=== PATIENT | female | born 1985 | race Caucasian/White ===

== ENCOUNTER 2018-02-02 01:39 | Emergency (ER) | payer SELFPAY ==
[2018-02-02] MEDS ORDERED: LIDOCAINE 1% W/EPI 1:100,000 MDV 50 ML VIAL ONE (01:48)
[2018-02-02] MEDS ORDERED: TETANUS & DIPHTHERIA TOX,ADULT 0.5 ML VIAL ONE (01:54)
[2018-02-02] MEDS ORDERED: IBUPROFEN 400 MG TAB ONE (02:08)
[2018-02-02] MEDS ORDERED: IBUPROFEN 200 MG TAB PO ONE (02:08)
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
[2018-02-02 04:01] VITALS: BP 118/78; TEMP 98.7; O2SAT 99
== END 2018-02-02 03:54 | disposition home or self-care (01) ==
LOC: ER 01:39
PROC: 0JQG0ZZ Repair Right Lower Arm Subcutaneous Tissue and Fascia, Open Approach (ICD-10-PCS; principal; 2018-02-02)
DX: S51.811A Laceration without foreign body of right forearm, initial encounter (principal); X99.1XXA Assault by knife, initial encounter; Y93.89 Activity, other specified; Y92.89 Other specified places as the place of occurrence of the external cause; Z91.048 Other nonmedicinal substance allergy status; Z23 Encounter for immunization; I10 Essential (primary) hypertension; F17.210 Nicotine dependence, cigarettes, uncomplicated
CPT/HCPCS: 90714; 99284

== ENCOUNTER 2020-03-06 21:35 | Emergency (ER) | payer SELFPAY ==
--- OUTSIDE RECORDS SUMMARY | 2020-03-06 21:37 | XMS REPORT | Continuity of Care Document ---
:1985 Author Organization [facility] t Address [address] [place] [address] Care Team Providers Name Role Phone Unavailable Unavailable Unavailable Payers Payer Name Policy Type Policy Number Effective Date Expiration Date S ource Problems This patient has no known problems. Allergies, Adverse Reactions, Alerts Allergy Allergy Status Severity Reaction(s) Onset Inactive Treating Comm ents Source Name Type Date Date Clinician No Known DA Active [facility] Allerg 05-04 Clear s 00:00: Adams [address] [place] [address] Medications This patient has no known medications. Procedures This patient has no known procedures. Results Test Description Test Time Test Comments Results Result [facility] e Comments - DUP VEIN UNI/LTD 2019-05-04 Name: 20:08:00 IGLESIA HUGO [facility] [place] : 1985 Age/S: 33 / F [address] [place] [address] Unit #: [id number] Loc: [place] [address] Phys: Donato Dyer DO Acct: [id number] Dis Date: Status: REG ER PHONE #: [phone] Exam Date: 05/04/20192005 FAX #: [phone] Reason: Left calf pain swelling eval for DVT EXAMS: CPT CODE: [id number] DUP VEIN UNI/LTD 01694 Clinical Indication: Left calf pain swelling eval for DVT; Comparison: None TECHNIQUE: Sonographic evaluation of the left lower extremity veins was performed using high resolution B-mode imaging, along with pulse and color Doppler imaging. FINDINGS: Left lower extremity: The common femoral vein, femoral vein, popliteal vein and visualized posterior tibial/calf veins are patent. The saphenofemoral junction is unremarkable. REFERENCE: Deep veins include: common femoral vein, superficial femoral vein (also can be referred to as "femoral vein"), popliteal vein, posterior tibial vein Superficial veins include: greater and lesser saphenous veins IMPRESSION: No sonographic evidence for DVT in the left lower extremity veins. SL: LANVU-H at 2007 Reported and signed by: Alex Henderson M.D. CC: Donato Dyer DO Technologist: Love Lynne RDMS(AB)(OB) Trnscb Date/Time: 05/04/2019 (2007) DeepikaLNV Orig Print D/T: S: 05/04/2019 (2010) Probe: PAGE 1 Signed Report - XR ANKLE 3 + V 2019-05-04 FAX: Y LT 19:28:00 Donato Dyer DO [phone] [place]: St: PRE Name: IGLESIA HUGO [facility] : 1985 Age/S: 33/F [address] [place] [address] Unit #: [id number] Loc: [place] [address] Phys: Donato Dyer DO Acct: [id number] Dis Date: Status: PRE ER PHONE #: [phone] Exam Date: 05/04/20191915 FAX #: [phone] Reason: left ankle pain EXAMS: CPT CODE: [id number] XR ANKLE 3 + [place] [id number] Clinical Indication: left ankle pain; Comparison: None FINDINGS: The 3 views of the left ankle show normal alignment without fractures or dislocations. The tibiotalar joint and talar dome are unremarkable. The subtalar joint is unremarkable. There is no ankle joint effusion. The ankle mortise is normal. The distal tibia-fibular alignment is unremarkable. There is no radiopaque foreign bodies. No soft tissue swelling is seen. If there is further concern, recommend follow-up radiographs or MRI for complete assessment. IMPRESSION: No fracture or dislocation of the left ankle. SL: LANVU-H at 1928 Reported and signed by: Alex Hendersno M.D. CC: Donato Dyer DO Technologist: RT Sumaya(Taran)Taran Trnscrd Date/Time/By: 05/04/2019 (1927) : By: DeepikaLNV Orig Print D/T: S: 05/04/2019 (1930) PAGE 1 Signed Report
--- NOTE | 2020-03-06 22:30 | EDPHYS ---
Physician Documentation [facility] Name: Kary Morales Age: 34 yrs Sex: Female : 1985 Arrival Date: 03/06/2020 Time: 21:36 Bed 18 Private MD: ED Physician Gege Jasso HPI: 03/06 22:25 This 34 yrs old Female presents to ER via Ambulatory with complaints of cp Spider Bite. 22:25 The patient or guardian complains of pain, that is acute, swelling, tenderness. The cp complaints affect the right elbow. Context: possible spider bite. 22:25 Onset: The symptoms/episode began/occurred yesterday. Treatment prior to arrival cp includes: no previous treatment. Associated signs and symptoms: Pertinent positives: erythema, swelling, warmth, Pertinent negatives: decreased range of motion, fever, injury. 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 - Social history:: Smoking status: Patient reports the use of cigarette tobacco products, smokes one-half pack cigarettes per day. ROS: 22:26 Constitutional: Negative for body aches, chills, fever. cp 22:26 MS/extremity: Negative for injury or acute deformity, decreased range of motion. 22:26 Skin: Positive for cellulitis, pustules, of the right elbow. 22:26 All other systems are negative. Exam: 22:27 Head/Face: Normocephalic, atraumatic. cp 22:27 Constitutional: The patient appears in no acute distress, alert, awake, non-toxic, well developed, well nourished. 22:27 Cardiovascular: Rate: normal. 22:27 Respiratory: the patient does not display signs of respiratory distress, Respirations: normal, labored breathing, is not present. 22:27 Skin: cellulitis, that is moderate, well demarcated, on the right elbow, noted pustule and mild induration. Vital Signs: 21:51 BP 134 / 85; Pulse 85; Resp 18 S; Temp 97(TE); Pulse Ox 100% on R/A; Weight 56.7 kg ca1 (R); Height 5 ft. 2 in. (157.48 cm) (R); 21:51 Body Mass Index 22.86 (56.70 kg, 157.48 cm) ca1 MDM: 22:11 Patient medically screened. cp 22:25 Differential diagnosis: abscess, cellulitis, septic joint. cp 22:28 Data reviewed: vital signs, nurses notes, and as a result, I will discharge patient. cp 22:29 Counseling: I had a detailed discussion with the patient and/or guardian regarding: the cp historical points, exam findings, and any diagnostic results supporting the discharge/admit diagnosis, to return to the emergency department if symptoms worsen or persist or if there are any questions or concerns that arise at home. 03/06 22:24 Order name: [facility]. Order: outline area of redness right elbow; Complete Time: 22:44 cp Administered Medications: 22:43 Drug: Doxycycline 100 mg Route: PO; jd3 22:52 Follow up: Response: No adverse reaction jd3 22:43 Drug: Bactrim (160 mg-800 mg (DS) 1 tablet Route: PO; jd3 22:53 Follow up: Response: No adverse reaction j Disposition: 22:55 Chart complete. 03/07 02:27 Co-signature as Attending Physician, Gege Jasso MD. ma2 Disposition: 03/06/20 22:29 Discharged to Home. Impression: Cellulitis of right upper limb - elbow. - Condition is Stable. - Discharge Instructions: Cellulitis, Adult. - Prescriptions for Doxycycline Hyclate 100 mg Oral Tablet - take 1 tablet by ORAL route every 12 hours; 20 tablet. Bactrim DS 800- 160 mg Oral Tablet - take 1 tablet by ORAL route every 12 hours for 10 days; 20 tablet. - Medication Reconciliation Form, Thank You Letter, Antibiotic Education, Prescription Opioid Use, Work release form form. - Follow up: Private Physician; When: 1 - 2 days; Reason: Worsening of condition. - Problem is new. - Symptoms have improved. Signatures: Junior Hu PA PA cp Davies, Jonathon, RN RN jd3 Alzahri, Mohammad, MD MD ma2 Brandi Webb RN RN ca1 Corrections: (The following items were deleted from the chart) 03/06 22:53 22:29 03/06/2020 22:29 Discharged to Home. Impression: Cellulitis of right upper limb - jd3 elbow. Condition is Stable. Forms are Medication Reconciliation Form, Thank You Letter, Antibiotic Education, Prescription Opioid Use. Follow up: Private Physician; When: 1 - 2 days; Reason: Worsening of condition. Problem is new. Symptoms have improved. cp
--- NOTE | 2020-03-06 22:30 | ER ---
Nurse's Notes [facility] Name: Kary Morales Age: 34 yrs Sex: Female : 1985 Arrival Date: 03/06/2020 Time: 21:36 Bed 18 Private MD: Diagnosis: Cellulitis of right upper limb-elbow Presentation: 03/06 21:51 Chief complaint: Patient states: Abscess on R elbow started yesterday. Coronavirus ca1 screen: Proceed with normal triage. Patient denies a cough. Patient denies shortness of breath or difficulty breathing. Patient denies measured and/or subjective temperature greater than 100.4F prior to today's visit. Patient denies travel on a cruise ship or to a country the [facility] currently lists as an affected area. Patient denies contact with known and/or suspected case of COVID-19. Ebola Screen: Patient negative for fever greater than or equal to 101.5 degrees Fahrenheit, and additional compatible Ebola Virus Disease symptoms Patient denies exposure to infectious person. Patient denies travel to an Ebola-affected area in the 21 days before illness onset. No symptoms or risks identified at this time. Initial Sepsis Screen: Does the patient meet any 2 criteria? No. Patient's initial sepsis screen is negative. Does the patient have a suspected source of infection? No. Patient's initial sepsis screen is negative. Risk Assessment: Do you want to hurt yourself or someone else? Patient reports no desire to harm self or others. Onset of symptoms was March 06, 2020. 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 - Social history:: Smoking status: Patient reports the use of cigarette tobacco products, smokes one-half pack cigarettes per day. Screenin:52 Abuse screen: Denies threats or abuse. Nutritional screening: No deficits noted. jd3 Tuberculosis screening: No symptoms or risk factors identified. Fall Risk Ambulatory Aid- None/Bed Rest/Nurse Assist (0 pts). Gait- Normal/Bed Rest/Wheelchair (0 pts) Mental Status- Oriented to own ability (0 pts). Total Capps Fall Scale indicates No Risk (0-24 pts). Assessment: 22:40 General: Appears in no apparent distress. uncomfortable, Behavior is calm, cooperative, jd3 appropriate for age. Pain: Complains of pain in right elbow Quality of pain is described as aching. Neuro: Level of Consciousness is awake, alert, obeys commands, Oriented to person, place, time, situation. Cardiovascular: Denies chest pain, Capillary refill < 3 seconds Patient's skin is warm and dry. Respiratory: Airway is patent Respiratory effort is even, unlabored, Respiratory pattern is regular, symmetrical, Denies cough, shortness of breath. GI: No signs and/or symptoms were reported involving the gastrointestinal system. : No signs and/or symptoms were reported regarding the genitourinary system. EENT: No signs and/or symptoms were reported regarding the EENT system. Derm: Skin is intact, Skin is dry, Skin is normal, Skin temperature is warm. Musculoskeletal: Circulation, motion, and sensation intact. Range of motion: intact in all extremities. Injury Description: Bite sustained to right elbow caused by an unknown animal, is from insect redness noted to left elbow with a white head in the middle. area of redness marked with skin marker. 22:51 Reassessment: Patient appears in no apparent distress at this time. Patient and/or jd3 family updated on plan of care and expected duration. Pain level reassessed. Patient is alert, oriented x 3, equal unlabored respirations, skin warm/dry/pink. Vital Signs: 21:51 BP 134 / 85; Pulse 85; Resp 18 S; Temp 97(TE); Pulse Ox 100% on R/A; Weight 56.7 kg ca1 (R); Height 5 ft. 2 in. (157.48 cm) (R); 21:51 Body Mass Index 22.86 (56.70 kg, 157.48 cm) ca1 ED Course: 21:36 Patient arrived in ED. ds1 21:52 Triage completed. ca1 21:54 Arm band placed on right wrist. ca1 22:06 Junior Hu PA is PHCP. cp 22:06 Gege Jasso MD is Attending Physician. cp 22:37 Solis Chairez, RN is Primary Nurse. jd3 22:51 No provider procedures requiring assistance completed. Patient did not have IV access jd3 during this emergency room visit. 22:52 Patient has correct armband on for positive identification. Bed in low position. Call jd3 light in reach. Side rails up X 1. Adult w/ patient. Administered Medications: 22:43 Drug: Doxycycline 100 mg Route: PO; jd3 22:52 Follow up: Response: No adverse reaction jd3 22:43 Drug: Bactrim (160 mg-800 mg (DS) 1 tablet Route: PO; jd3 22:53 Follow up: Response: No adverse reaction jd3 Outcome: 22:29 Discharge ordered by MD. cp 22:52 Discharged to home ambulatory, with family. jd3 22:52 Condition: stable 22:52 Discharge instructions given to patient, family, Instructed on discharge instructions, follow up and referral plans. medication usage, Demonstrated understanding of instructions, follow-up care, medications, Prescriptions given X 2. 22:53 Patient left the ED. jd3 Signatures: Trang Harman ds1 Junior Hu PA PA cp Solis Chairez, RN RN jd3 Brandi Webb RN RN ca1
[2020-03-06] MEDS ORDERED: SMZ./TMP. 800/160 MG TABLET ONE (22:48)
[2020-03-06] MEDS ORDERED: DOXYCYCLINE 100 MG CAP PO ONE (22:48)
[2020-03-06 23:15] VITALS: BP 134/85; TEMP 97; O2SAT 100
== END 2020-03-06 22:53 | disposition home or self-care (01) ==
LOC: ER 21:35
DX: L03.113 Cellulitis of right upper limb (principal); W57.XXXA Bitten or stung by nonvenomous insect and other nonvenomous arthropods, initial encounter; Y93.9 Activity, unspecified; Y92.9 Unspecified place or not applicable; I10 Essential (primary) hypertension; F17.210 Nicotine dependence, cigarettes, uncomplicated; Z88.5 Allergy status to narcotic agent; Z88.8 Allergy status to other drugs, medicaments and biological substances; Z91.048 Other nonmedicinal substance allergy status
CPT/HCPCS: 99283

== ENCOUNTER 2020-06-08 00:37 | Emergency (ER) | payer SELFPAY ==
--- OUTSIDE RECORDS SUMMARY | 2020-06-08 00:39 | XMS REPORT | Continuity of Care Document ---
:1985 Author Organization [facility] t Address [address] [place] [address] Care Team Providers Name Role Phone Unavailable Unavailable Unavailable Payers Payer Name Policy Type Policy Number Effective Date Expiration Date S ource Problems This patient has no known problems. Allergies, Adverse Reactions, Alerts Allergy Allergy Status Severity Reaction(s) Onset Inactive Treating Comm ents Source Name Type Date Date Clinician No Known DA Active U [facility] Allerg 05-04 [place] s 00:00: Adams 00 [facility] Medications This patient has no known medications. Procedures This patient has no known procedures. Results Test Description Test Time Test Comments Results Result [facility] Comments - DUP VEIN UNI/LTD 2019-05-04 Name: 20:08:00 IGLESIA HUGO [facility] : 1985 Age/S: 33 / F [address] [place] [address] Unit #: [id number] Loc: [place] [address] Phys: Donato Dyer DO Acct: [id number] Dis Date: Status: REG ER PHONE #: [phone] Exam Date: 05/04/20192005 FAX #: [phone] Reason: Left calf pain swelling eval for DVT EXAMS: CPT CODE: [id number] DUP VEIN UNI/LTD 16726 Clinical Indication: Left calf pain swelling eval [...] FAX: Y LT 19:28:00 Donato Dyer DO [phone] [place]: St: PRE Name: IGLESIA HUGO [facility] : 1985 Age/S: 33/F [address] [place] [address] Unit #: [id number] Loc: [place] [address] Phys: Donato Dyer DO Acct: [id number] Dis Date: Status: PRE ER PHONE #: [phone] Exam Date: 05/04/20191915 FAX #: [phone] Reason: left ankle pain EXAMS: CPT CODE: [id number] XR ANKLE 3 + [place] [address] Clinical Indication: left ankle pain; Comparison: None [...] or dislocation of the left ankle. SL: HEATHERU-H at 1928 Reported and signed by: Alex Henderson M.D. CC: Donato Dyer DO Technologist: RT Sumaya(R)R Trnscrd Date/Time/By: 05/04/2019 (1927) : By: DeepikaLNV Orig Print D/T: S: 05/04/2019 (1930) PAGE 1 Signed Report
--- NOTE | 2020-06-08 01:05 | EDPHYS ---
Physician Documentation [facility] Name: Kary Morales Age: 34 yrs Sex: Female : 1985 Arrival Date: 06/08/2020 Time: 00:40 Bed 8 Private MD: ED Physician Ian Mccray HPI: 06/08 01:01 This 34 yrs old Female presents to ER via Ambulatory with complaints of Back jr8 Pain. 01:01 The patient presents with pain that is acute. The symptoms are located in the low back. jr8 Onset: The symptoms/episode began/occurred acutely, today. The pain does not radiate. Associated signs and symptoms: The patient has no apparent associated signs or symptoms. Modifying factors: The patient symptoms are alleviated by nothing, the patient symptoms are aggravated by any movement. Severity of symptoms: At their worst the symptoms were moderate, in the emergency department the symptoms are unchanged. The patient has not experienced similar symptoms in the past. The patient has not recently seen a physician. Patient was on swing which broke causing her to fall on right buttock. Pain to low back since incident. Denies numbness, tingling, bowel or bladder dysfunction . 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 - Social history:: Smoking status: Patient reports the use of cigarette tobacco products, smokes one-half pack cigarettes per day, Patient uses alcohol, occasionally. Patient/guardian denies using street drugs. ROS: 01:01 Eyes: Negative for injury, pain, redness, and discharge, ENT: Negative for injury, jr8 pain, and discharge, Neck: Negative for injury, pain, and swelling, Cardiovascular: Negative for chest pain, palpitations, and edema, Respiratory: Negative for shortness of breath, cough, wheezing, and pleuritic chest pain, Abdomen/GI: Negative for abdominal pain, nausea, vomiting, diarrhea, and constipation, MS/Extremity: Negative for injury and deformity, Skin: Negative for injury, rash, and discoloration, Neuro: Negative for headache, weakness, numbness, tingling, and seizure. 01:01 Back: Positive for pain at rest, pain with movement, Negative for radiated pain. Exam: 01:01 Head/Face: Normocephalic, atraumatic. Neck: Trachea midline, no thyromegaly or masses jr8 palpated, and no cervical lymphadenopathy. Supple, full range of motion without nuchal rigidity, or vertebral point tenderness. No Meningismus. Chest/axilla: Normal chest wall appearance and motion. Nontender with no deformity. No lesions are appreciated. Cardiovascular: Regular rate and rhythm with a normal S1 and S2. No gallops, murmurs, or rubs. Normal PMI, no JVD. No pulse deficits. Respiratory: Lungs have equal breath sounds bilaterally, clear to auscultation and percussion. No rales, rhonchi or wheezes noted. No increased work of breathing, no retractions or nasal flaring. Abdomen/GI: Soft, non-tender, with normal bowel sounds. No distension or tympany. No guarding or rebound. No evidence of tenderness throughout. Skin: Warm, dry with normal turgor. Normal color with no rashes, no lesions, and no evidence of cellulitis. MS/ Extremity: Pulses equal, no cyanosis. Neurovascular intact. Full, normal range of motion. Neuro: Awake and alert, GCS 15, oriented to person, place, time, and situation. Cranial nerves II-XII grossly intact. Motor strength 5/5 in all extremities. Sensory grossly intact. Cerebellar exam normal. Normal gait. 01:01 Back: pain, that is moderate, of the lumbar area and right low back, ROM is painful, with flexion, normal spinal alignment noted, CVA tenderness, is absent. Vital Signs: 00:54 BP 117 / 76; Pulse 87; Resp 16 S; Temp 98.2(O); Pulse Ox 99% on R/A; Weight 56.7 kg bb (R); Height 5 ft. 2 in. (157.48 cm) (R); Pain 9/10; 00:54 Body Mass Index 22.86 (56.70 kg, 157.48 cm) bb MDM: 00:57 Patient medically screened. jr8 01:01 Data reviewed: vital signs, nurses notes, radiologic studies, CT scan. Data jr8 interpreted: Pulse oximetry: on room air is 99 %. Interpretation: normal. Counseling: I had a detailed discussion with the patient and/or guardian regarding: the historical points, exam findings, and any diagnostic results supporting the discharge/admit diagnosis, radiology results, the need for outpatient follow up, a family practitioner, to return to the emergency department if symptoms worsen or persist or if there are any questions or concerns that arise at home. 06/08 01:01 Order name: CT Lumbar Spine Wo Con jr8 Administered Medications: 01:08 Drug: [place] 10 mg-325 mg 1 tabs Route: PO; mg2 01:08 Drug: TORadol 30 mg Route: IM; Site: right gluteus; mg2 Disposition: 02:48 Co-signature as Attending Physician, Ian Mccray MD. mena Disposition: 06/08/20 01:05 Discharged to Home. Impression: Low back pain. - Condition is Stable. - Discharge Instructions: Back Pain, Adult, Musculoskeletal Pain, Heat Therapy. - Prescriptions for Ibuprofen 800 mg Oral Tablet - take 1 tablet by ORAL route every 12 hours As needed take with food; 20 tablet. Robaxin 500 mg Oral Tablet - take 2 tablet by ORAL route every 6 hours As needed; 40 tablet. Medrol (Monster) 4 mg Oral Tablets, Dose Pack - take 1 tablet by ORAL route as directed - follow package instructions; 1 packet. - Medication Reconciliation Form, Thank You Letter, Antibiotic Education, Prescription Opioid Use, Work release form form. - Follow up: Private Physician; When: 2 - 3 days; Reason: Recheck today's complaints, Continuance of care, Re-evaluation by your physician. - Problem is new. - Symptoms have improved. Signatures: Dispatcher [employer] Angelito Godfrey RN RN sg Lam, Pin, MD MD pkl Ángela Umanzor RN RN Armando Edgar PA PA jr8 Yovani Reyes RN RN mg2 Corrections: (The following items were deleted from the chart) 02:27 01:05 06/08/2020 01:05 Discharged to Home. Impression: Low back pain. Condition is sg Stable. Forms are Medication Reconciliation Form, Thank You Letter, Antibiotic Education, Prescription Opioid Use. Follow up: Private Physician; When: 2 - 3 days; Reason: Recheck today's complaints, Continuance of care, Re-evaluation by your physician. Problem is new. Symptoms have improved. jr8
--- NOTE | 2020-06-08 01:05 | ER ---
Nurse's Notes [facility] Name: Kary Morales Age: 34 yrs Sex: Female : 1985 Arrival Date: 06/08/2020 Time: 00:40 Bed 8 Private MD: Diagnosis: Low back pain Presentation: 06/08 00:54 Chief complaint: Patient states: she was swinging on a swing at the park this morning bb approx 2014 and fell through it injuring her lower back and tailbone. Coronavirus screen: At this time, the client does not indicate any symptoms associated with coronavirus-19. Ebola Screen: No symptoms or risks identified at this time. Initial Sepsis Screen: Does the patient meet any 2 criteria? No. Patient's initial sepsis screen is negative. Does the patient have a suspected source of infection? No. Patient's initial sepsis screen is negative. Risk Assessment: Do you want to hurt yourself or someone else? Patient reports no desire to harm self or others. Onset of symptoms was June 07, 2020. 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 - Social history:: Smoking status: Patient reports the use of cigarette tobacco products, smokes one-half pack cigarettes per day, Patient uses alcohol, occasionally. Patient/guardian denies using street drugs. Screenin:57 Abuse screen: Denies threats or abuse. Denies injuries from another. Nutritional mg2 screening: No deficits noted. Tuberculosis screening: No symptoms or risk factors identified. Fall Risk Fall in past 12 months (25 points). Assessment: 00:57 General: Appears in no apparent distress. uncomfortable, Behavior is calm, cooperative. bb Pain: Complains of pain in back Pain currently is 9 out of 10 on a pain scale. Neuro: Level of Consciousness is awake, alert, obeys commands, Oriented to person, place, time, situation. Cardiovascular: No deficits noted. Respiratory: Respiratory effort is even, unlabored, Respiratory pattern is regular. Derm: Skin is pink, warm \T\ dry. Musculoskeletal: Circulation, motion, and sensation intact. Reports pain in back. 00:57 General: Appears in no apparent distress. comfortable, Behavior is calm, cooperative. mg2 Pain: Complains of pain in back. Neuro: Level of Consciousness is awake, alert, obeys commands, Oriented to person, place, time, situation. Cardiovascular: Capillary refill < 3 seconds Patient's skin is warm and dry. Respiratory: Airway is patent Respiratory effort is even, unlabored, Respiratory pattern is regular, symmetrical. GI: No signs and/or symptoms were reported involving the gastrointestinal system. EENT: No deficits noted. Derm: Skin is intact, is healthy with good turgor, Skin is pink, warm \T\ dry. normal. Musculoskeletal: Reports pain in back. Vital Signs: 00:54 BP 117 / 76; Pulse 87; Resp 16 S; Temp 98.2(O); Pulse Ox 99% on R/A; Weight 56.7 kg bb (R); Height 5 ft. 2 in. (157.48 cm) (R); Pain 9/10; 00:54 Body Mass Index 22.86 (56.70 kg, 157.48 cm) bb ED Course: 00:40 Patient arrived in ED. bp1 00:56 Triage completed. bb 00:56 Arm band placed on Patient placed in an exam room, on a stretcher, on pulse oximetry. bb 00:57 Armando Siegel PA is PHCP. jr8 00:57 Ian Mccray MD is Attending Physician. jr8 00:57 Patient has correct armband on for positive identification. Bed in low position. Call bb light in reach. Side rails up X 1. Pulse ox on. NIBP on. Warm blanket given. 00:58 No provider procedures requiring assistance completed. mg2 01:27 Patient moved back from CT. awaiting CT report prior to DC to home per ERP order. sg 01:44 Yovani Reyes, RENATO is Primary Nurse. mg2 01:45 Patient did not have IV access during this emergency room visit. mg2 08:32 CT Lumbar Spine Wo Con In Process Unspecified. EDMS Administered Medications: 01:08 Drug: [place] 10 mg-325 mg 1 tabs Route: PO; mg2 01:08 Drug: TORadol 30 mg Route: IM; Site: right gluteus; mg2 Outcome: 01:05 Discharge ordered by MD. chen 02:25 Discharged to home via wheelchair, with family. sg 02:25 Condition: good 02:25 Discharge instructions given to patient, Instructed on discharge instructions, follow up and referral plans. no drinking with medication, no driving heavy equipment, medication usage, safety practices, Demonstrated understanding of instructions, follow-up care, medications, Prescriptions given X 3. 02:27 Patient left the ED. sg Signatures: Dispatcher [employer] EDMS Angelito Kirkland RN RN sg Ballard, Brenda RN RN Armando Edgar PA PA jr8 [place], Michele, RN RN mg2 Marlee Jacob bp1
[2020-06-08] MEDS ORDERED: KETOROLAC 30 MG/ML INJ ONE (01:15)
[2020-06-08] MEDS ORDERED: HYDROCODONE/APAP 10/325 TAB ONE (01:16)
[2020-06-08 08:18] VITALS: BP 117/76; TEMP 98.2; O2SAT 99
--- NOTE | 2020-06-08 11:59 | RAD REPORT ---
EXAM DESCRIPTION: CTSpine Lumbar Wo Con06/08/2020 6:58 am CLINICAL HISTORY: 34-year-old female who was on a swing and fell through it injuring her lower back and tailbone. TECHNIQUE: Multiple high-resolution thin axial CT images were performed through the lumbar spine fol lowed by sagittal and coronal reconstructed images. The CT study is performed according to ALARA (as low as reasonably achievable) or ALARA/IMAGE GENTLY, with automatic adjustment of mA and/or kV accord ing to patient size. Performed on: 06/08/2020 at 1: 20 AM COMPARISON: No prior studies were available for comparison. FINDINGS: There is very mild loss of height of the L1 vertebral body likely due to a mild chronic alejandro perior endplate compression fracture. There is no evidence of buckling of the anterior or posterior c ortex of L1. The remainder of the lumbar vertebrae are normal in height and alignment. There are very small Schmorl's nodes present along the endplates of L1-L3. The disc spaces are well preserved in he ight. Bone mineralization is normal. There is normal alignment of the facet joints on the parasagittal images. There are no significant de generative changes of the facet joints. There is no evidence of acute fracture or subluxation. There is no significant canal stenosis. Th ere is no significant neural foraminal stenosis. The paravertebral and paraspinal soft tissues ar e unremarkable. IMPRESSION: 1. No evidence of acute osseous injury involving the lumbar spine or visualized sacrum a nd coccyx. 2. Suspect mild chronic superior endplate compression fracture of L1. 3. Mild degenerative changes of the lumbar spine as described above. Electronically signed by: Latasha Ruggiero DO 06/08/2020 2:04 AM CDT Due to temporary technical issues with the PACS/Fluency reporting system, reports are being signed by the in house radiologist without review as a courtesy to ensure prompt reporting. The interpreting r adiologist is fully responsible for the content of the report.
== END 2020-06-08 02:27 | disposition home or self-care (01) ==
LOC: ER 00:37
DX: M54.5 Low back pain (principal); I10 Essential (primary) hypertension; F17.210 Nicotine dependence, cigarettes, uncomplicated; Z88.5 Allergy status to narcotic agent; Z88.8 Allergy status to other drugs, medicaments and biological substances; Z91.048 Other nonmedicinal substance allergy status
CPT/HCPCS: 72131; 96372; 99284

== ENCOUNTER 2020-11-02 18:32 | Emergency (ER) | payer SELFPAY ==
--- OUTSIDE RECORDS SUMMARY | 2020-11-02 18:34 | XMS REPORT | Continuity of Care Document ---
:1985 Author Organization [facility] t Address [address] [place] [address] Care Team Providers Name Role Phone Unavailable Unavailable Unavailable Payers Payer Name Policy Type Policy Number Effective Date Expiration Date S ource Problems This patient has no known problems. Allergies, Adverse Reactions, Alerts Allergy Allergy Status Severity Reaction(s) Onset Inactive Treating Comm ents Source Name Type Date Date Clinician No Known DA Active U [facility] Allergie 05-04 [place] s 00:00: Adams [address] [place] [address] Medications This patient has no known medications. Procedures This patient has no known procedures. Results Test Description Test Time Test Comments Results Result [facility] Comments - DUP VEIN UNI/LTD 2019-05-04 Name: 20:08:00 [facility]GLESIA HUGO [facility] [place] : 1985 Age/S: 33 / F [address] [place] [address] Unit #: [id number] Loc: [place] [address] Phys: Donato Dyer DO Acct: [id number] Dis Date: Status: REG ER PHONE #: [phone] Exam Date: 05/04/20192005 FAX #: [phone] Reason: Left calf pain swelling eval for DVT EXAMS: CPT CODE: [id number] DUP VEIN UNI/LTD 18342 Clinical Indication: Left calf pain swelling eval [...] FAX: Y LT 19:28:00 Donato Dyer DO [phone] [place]: St: PRE Name: IGLESIA HUGO [facility] : 1985 Age/S: 33/F [address] [place] [address] Unit #: [id number] Loc: [place] [address] Phys: Donato Dyer DO Acct: [id number] Dis Date: Status: PRE ER PHONE #: [phone] Exam Date: 05/04/20191915 FAX #: [phone] Reason: left ankle pain EXAMS: CPT CODE: [id number] XR ANKLE 3 + [place] [address]053 Clinical Indication: left ankle pain; Comparison: None [...] Sumaya(Taran)Taran Trnscrd Date/Time/By: 05/04/2019 (1927) : By: [email or web address] Orig Print D/T: S: 05/04/2019 (1930) PAGE 1 Signed Report
[2020-11-02] MEDS ORDERED: KETOROLAC 30 MG/ML INJ ONE (22:33)
[2020-11-02] MEDS ORDERED: CYCLOBENZAPRINE 10 MG TAB ONE (22:33)
[2020-11-02 22:51] LABS: Urine Blood NEGATIVE (NEG); Urine Glucose NEGATIVE (NEG); Urine Protein NEGATIVE (NEG); Urine Specific Gravity 1.025 (1.005-1.030); Urine pH 5.5 (5.0-7.0)
--- NOTE | 2020-11-02 23:55 | ER ---
Nurse's Notes [facility] Name: Kary Morales Age: 34 yrs Sex: Female : 1985 Arrival Date: 11/02/2020 Time: 18:33 Bed 4 Private MD: Diagnosis: Strain of muscle, fascia and tendon at neck level Presentation: 11/02 18:48 Chief complaint: Patient states: Neck, shoulder, both arms pain since overusing them at ll1 work 10 days ago. 2 periods month. Dark urine for a couple days. Coronavirus screen: Client denies travel out of the [place] in the last 14 days. At this time, the client does not indicate any symptoms associated with coronavirus-19. Ebola Screen: Patient denies travel to an Ebola-affected area in the 21 days before illness onset. Initial Sepsis Screen: Does the patient meet any 2 criteria? No. Patient's initial sepsis screen is negative. Does the patient have a suspected source of infection? No. Patient's initial sepsis screen is negative. Risk Assessment: Do you want to hurt yourself or someone else? Patient reports no desire to harm self or others. Onset of symptoms was October 23, 2020. 18:48 Method Of Arrival: Ambulatory ll1 18:48 Acuity: ALMA DELIA 3 ll1 Historical: - Allergies: 18:50 Dilaudid; ll1 18:50 Demerol; ll1 18:50 Tape; ll1 18:50 Morphine; ll1 - PMHx: 18:50 Hypertension; Seizures; ll1 - PSHx: 18:50 Tubal ligation; right leg surg; ll1 - Immunization history:: Flu vaccine is not up to date. - Social history:: Smoking status: Patient reports the use of cigarette tobacco products, smokes one-half pack cigarettes per day. Screenin:45 Abuse screen: Denies threats or abuse. Nutritional screening: No deficits noted. em Tuberculosis screening: No symptoms or risk factors identified. Fall Risk None identified. Assessment: 21:45 General: Appears in no apparent distress. uncomfortable, Behavior is calm, cooperative, em appropriate for age, Denies fever. Pain: Complains of pain in neck and right arm Pain currently is 10 out of 10 on a pain scale. Neuro: Level of Consciousness is awake, alert, obeys commands, Oriented to person, place, time, situation. Cardiovascular: Capillary refill < 3 seconds Patient's skin is warm and dry. Respiratory: Airway is patent Respiratory effort is even, unlabored, Respiratory pattern is regular, symmetrical. GI: Abdomen is flat, Patient currently denies nausea, vomiting. Derm: Skin is intact, is healthy with good turgor, Skin is pink, warm \T\ dry. Musculoskeletal: Capillary refill < 3 seconds, Range of motion: intact in all extremities. 22:46 Reassessment: Patient appears in no apparent distress at this time. Patient and/or em family updated on plan of care and expected duration. Pain level reassessed. Patient is alert, oriented x 3, equal unlabored respirations, skin warm/dry/pink. 23:40 Reassessment: reports pain is unchanged, pt crying asking for other pain medication, em IDRIS Tierney notified. Vital Signs: 18:48 BP 124 / 88; Pulse 97; Resp 18; Temp 98.6; Pulse Ox 100% ; Height 5 ft. 2 in. (157.48 ll1 cm); Pain 10/10; 22:46 BP 111 / 75; Pulse 70; Resp 18; Pulse Ox 99% on R/A; em ED Course: 18:33 Patient arrived in ED. as 18:49 Triage completed. ll1 18:50 Arm band placed on. ll1 21:37 Rajendra Berg, RN is Primary Nurse. em 21:45 Patient has correct armband on for positive identification. Side rails up X2. Adult w/ em patient. 21:53 Stephen Mason MD is Attending Physician. tw4 21:55 Niall Park [facility] pm1 21:55 Stephen Mason MD is Attending Physician. pm1 22:14 Urine collected: clean catch specimen, clear. em 11/03 00:10 No provider procedures requiring assistance completed. Patient did not have IV access em during this emergency room visit. Administered Medications: 11/02 22:20 Drug: Flexeril 10 mg Route: PO; em 23:58 Follow up: Response: No adverse reaction; No change in condition em 22:20 Drug: TORadol 60 mg Route: IM; Site: left gluteus; em 23:59 Follow up: Response: No adverse reaction; No change in condition; Pain is unchanged, em physician notified 02/24 00:03 Drug: Tylenol #3 (300 mg-30 mg) 2 tabs Route: PO; em 00:12 Follow up: Response: Medication administered at discharge. em Outcome: 11/02 23:55 Discharge ordered by . pm1 11/03 00:10 Discharged to home ambulatory. em Condition: improved Discharge instructions given to patient, Instructed on discharge instructions, follow up and referral plans. no drinking with medication, no driving heavy equipment, medication usage, Demonstrated understanding of instructions, follow-up care, medications, Prescriptions given X 3. 00:12 Patient left the ED. em Signatures: Rajendra Berg, RN RN em Carmen Rider Patrick, DYNAMO REPAIRER DYNAMO REPAIRER pm1 Stephen Mason MD MD tw4 Mango El RN RN ll1
--- NOTE | 2020-11-02 23:55 | EDPHYS ---
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 23:05 The patient or guardian complains of pain, that is acute, spasm, stiffness. The pm1 symptoms are located left and right trapezius. Greater on right side. Onset: The symptoms/episode began/occurred 10 day(s) ago. Context: The problem was sustained at work, The neck injury/problem resulted from overuse. 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 Associated signs and symptoms: Pertinent positives: numbness, tingling, in the right hand and left hand, Pertinent negatives: fever, headache. Modifying factors: The symptoms are alleviated by remaining still, the symptoms are aggravated by movement. Severity of symptoms: in the emergency department the symptoms are unchanged. The patient has not experienced similar symptoms in the past. It is unknown whether or not the patient has recently seen a physician. Historical: - Allergies: 18:50 Dilaudid; ll1 18:50 Demerol; ll1 18:50 Tape; ll1 18:50 Morphine; ll1 - PMHx: 18:50 Hypertension; Seizures; ll1 - PSHx: 18:50 Tubal ligation; right leg surg; ll1 - Immunization history:: Flu vaccine is not up to date. - Social history:: Smoking status: Patient reports the use of cigarette tobacco products, smokes one-half pack cigarettes per day. ROS: 23:05 Constitutional: Negative for fever, chills, and weight loss, Cardiovascular: Negative pm1 for chest pain, palpitations, and edema, Respiratory: Negative for shortness of breath, cough, wheezing, and pleuritic chest pain. 23:05 Skin: Negative for injury, rash, and discoloration, Neuro: Negative for headache, weakness, numbness, tingling, and seizure. 23:05 Neck: Positive for pain with movement, stiffness, tenderness, of the left trapezius and right trapezius. 23:05 MS/extremity: Positive for pain, of the left hand and right hand. Exam: 23:05 Constitutional: This is a well developed, well nourished patient who is awake, alert, pm1 and in no acute distress. Head/Face: Normocephalic, atraumatic. 23:05 Back: No spinal tenderness. No costovertebral tenderness. Full range of motion. Skin: Warm, dry with normal turgor. Normal color with no rashes, no lesions, and no evidence of cellulitis. MS/ Extremity: Pulses equal, no cyanosis. Neurovascular intact. Full, normal range of motion. 23:05 Neck: Exam negative for acute changes, External neck: tenderness, that is mild, of the left trapezius and right trapezius, C-spine: vertebral tenderness, is not appreciated. 23:05 Cardiovascular: Exam negative for acute changes, Rate: normal, Rhythm: regular, Pulses: no pulse deficits are appreciated. 23:05 Respiratory: Exam negative for acute changes, respiratory distress, shortness of breath. 23:05 Neuro: Exam negative for acute changes, Orientation: is normal, Mentation: is normal, Motor: is normal, moves all fours. Vital Signs: 18:48 BP 124 / 88; Pulse 97; Resp 18; Temp 98.6; Pulse Ox 100% ; Height 5 ft. 2 in. (157.48 ll1 cm); Pain 10/10; 22:46 BP 111 / 75; Pulse 70; Resp 18; Pulse Ox 99% on R/A; em MDM: 22:02 Patient medically screened. pm1 23:54 Data reviewed: vital signs. Counseling: I had a detailed discussion with the patient pm1 and/or guardian regarding: the historical points, exam findings, and any diagnostic results supporting the discharge/admit diagnosis. Counseling: I had a detailed discussion with the patient and/or guardian regarding: the need for outpatient follow up, to return to the emergency department if symptoms worsen or persist or if there are any questions or concerns that arise at home. 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 pm1 11/02 22:17 Order name: Urine Dipstick--Ancillary (enter results) 2 11/02 22:17 Order name: Urine --Ancillary (enter results); Complete Time: 00:01 2 11/02 22:07 Order name: Urine Dipstick-Ancillary (obtain specimen); Complete Time: 22:13 pm1 11/02 22:07 Order name: Urine Test (obtain specimen); Complete Time: 22:14 pm1 Administered Medications: 22:20 Drug: Flexeril 10 mg Route: PO; em 23:58 Follow up: Response: No adverse reaction; No change in condition em 22:20 Drug: TORadol 60 mg Route: IM; Site: left gluteus; em 23:59 Follow up: Response: No adverse reaction; No change in condition; Pain is unchanged, em physician notified 11/03 00:03 Drug: Tylenol #3 (300 mg-30 mg) 2 tabs Route: PO; em 00:12 Follow up: Response: Medication administered at discharge. em Disposition: 06:44 Co-signature as Attending Physician, Stephen Mason MD I agree with the assessment and tw4 plan of care. Disposition: 11/02/20 23:55 Discharged to Home. Impression: Strain of muscle, fascia and tendon at neck level. - Condition is Stable. - Discharge Instructions: Muscle Strain. - Prescriptions for Tylenol- Codeine #3 300-30 mg Oral Tablet - take 2 tablets by ORAL route every 6 hours As needed; 20 tablet. Cyclobenzaprine 10 mg Oral Tablet - take 1 tablet by ORAL route every 8 hours As needed; 30 tablet. Diclofenac Sodium 75 mg Oral Tablet Sustained Release - take 1 tablet by ORAL route 2 times per day; 30 tablet. - Medication Reconciliation Form, Thank You Letter, Antibiotic Education, Prescription Opioid Use form. - Follow up: Emergency Department; When: As needed; Reason: Worsening of condition. Follow up: Private Physician; When: 2 - 3 days; Reason: Recheck today's complaints, Continuance of care, Re-evaluation by your physician. - Problem is new. - Symptoms have improved. Signatures: Dispatcher [employer] Rajendra Alvarez, RN RN Niall Park, RECREATION CENTER DIRECTOR RECREATION CENTER DIRECTOR pm1 Stephen Mason MD MD tw4 Mango El RN RN ll1 Corrections: (The following items were deleted from the chart) 11/02 23:55 23:55 11/02/2020 23:55 Discharged to Home. Impression: Strain of muscle, fascia and pm1 tendon at neck level; Carpal tunnel syndrome. Condition is Stable. Forms are Medication Reconciliation Form, Thank You Letter, Antibiotic Education, Prescription Opioid Use. Follow up: Emergency Department; When: As needed; Reason: Worsening of condition. Follow up: Private Physician; When: 2 - 3 days; Reason: Recheck today's complaints, Continuance of care, Re-evaluation by your physician. Problem is new. Symptoms have improved. pm1 11/03 00:12 11/02 23:55 11/02/2020 23:55 Discharged to Home. Impression: Strain of muscle, fascia em and tendon at neck level. Condition is Stable. Discharge Instructions: Muscle Strain. Forms are Medication Reconciliation Form, Thank You Letter, Antibiotic Education, Prescription Opioid Use. Follow up: Emergency Department; When: As needed; Reason: Worsening of condition. Follow up: Private Physician; When: 2 - 3 days; Reason: Recheck today's complaints, Continuance of care, Re-evaluation by your physician. Problem is new. Symptoms have improved. pm1
[2020-11-03] MEDS ORDERED: CODEINE 30MG/APAP 300MG TAB ONE (00:18)
[2020-11-03 00:56] VITALS: TEMP 98.6
[2020-11-03 00:58] VITALS: BP 111/75; O2SAT 99
== END 2020-11-03 00:12 | disposition home or self-care (01) ==
LOC: ER 18:32
DX: S16.1XXA Strain of muscle, fascia and tendon at neck level, initial encounter (principal); F17.210 Nicotine dependence, cigarettes, uncomplicated; I10 Essential (primary) hypertension
CPT/HCPCS: 81003; 81025; 96372; 99283

== ENCOUNTER 2023-03-30 17:07 | Inpatient (IN) | payer OTHER, SELFPAY ==
--- OUTSIDE RECORDS SUMMARY | 2023-03-30 17:11 | XMS REPORT | Continuity of Care Document ---
:1985 Author Organization [facility] t Address [address] [place] [address] Care Team Providers Name Role Phone Unavailable Unavailable Unavailable Payers Payer Name Policy Type Policy Number Effective Date Expiration Date S ource Problems This patient has no known problems. Allergies, Adverse Reactions, Alerts Allergy Allergy Status Severity Reaction(s) Onset Inactive Treating Comm ents Source Name Type Date Date Clinician No Known DA Active U [facility] Allergie 05-04 Clear s 00:00: Adams [address] [place] [address] Medications This patient has no known medications. Procedures This patient has no known procedures. Results Test Description Test Time Test Comments Results Result [facility] e Comments - DUP VEIN UNI/LTD 2019-05-04 Name: 20:08:00 IGLESIA HUGO [facility] [place] : 1985 Age/S: 33 / F [address] [place] [address] Blvd Unit #: [id number] Loc: [place] [address] Phys: Donato Dyer DO Acct: [id number] Dis Date: Status: REG ER PHONE #: [phone] Exam Date: 05/04/20192005 FAX #: [phone] Reason: Left calf pain swelling eval for DVT EXAMS: CPT CODE: [id number] DUP VEIN UNI/LTD 99365 Clinical Indication: Left calf pain swelling eval [...] in the left lower extremity veins. SL: LITTLE at 2007 Reported and signed by: Alex Henderson M.D. CC: Donato Dyer DO Technologist: Love Lynne RDMS(AB)(OB) Trnscb Date/Time: 05/04/2019 (2007) DeepikaLNV Orig Print D/T: S: 05/04/2019 (2010) Probe: PAGE 1 Signed Report - XR ANKLE 3 + V 2019-05-04 FAX: Donato Starks 19:28:00 DO [phone] Lynn: St: PRE Name: IGLESIA HUGO [facility] : 1985 Age/S: 33/F [address] [place] [address] Unit #: [id number] Loc: [place] [address] Phys: Donato Dyer DO Acct: [id number] Dis Date: Status: PRE ER PHONE #: [phone] Exam Date: 05/04/20191915 FAX #: [phone] Reason: left ankle pain EXAMS: CPT CODE: [id number] XR ANKLE 3 + [place] [address] Clinical Indication: left ankle pain; Comparison: None [...] S: 05/04/2019 (1930) PAGE 1 Signed Report Notes Date/Time Note Provider Source 2019-05-04 18:59:00-00:00 [facility] ([facility] EMERGENCY PROVIDER REPORT REPORT#:[id number] REPORT STATUS: Signed DATE:05/04/19 TIME: 1858 PATIENT: IGLESIA HUGO UNIT #: [id number] ROOM/BED: AGE: 33 SEX: F PCP PHYS: No Primary or Family P hysician SERVICE AUTHOR: Donato Dyer DO * ALL edits or amendments must be made on the [employer]/computer document * HPI-Extremity Prob Lower General Confirmed Patient Yes Initial Greet Date/Time 05/04/191849 Presentation Chief Complaint Ankle problem L Hx Obtained From Patient Onset Occurred Days ago (4) Symptom Duration Since onset Progression since Onset Unchanged Caused by No trauma by history Location Leg L, Ankle L, Foot L Associated with Denies: Chest pain, Difficulty breathing. Exacerbated by Walking Free Text HPI Notes Free Text HPI Notes 33 yo F w/PMH of HTN and sz d/o presents to ED w/ c/o L ankle pain, onset 4 days ago. Pt states the pain radi ates to the top of her L foot and behind her L knee that is exacerbated with walking. She denies any calf pain, SOB, CP or other addl sxs. She also denies an y trauma or injury. Of note, pt had MRSA and a blood clot s/p right tib/fib fracture repair in 2017 w as on coumadin for a month. Portions of this section were scribed by Bobbi Dominguez on 05/04/19 at 2014 Review of Systems ROS Statements All systems rev neg except as marked. Focused Review of Systems Musculoskeletal Reports: Extremity pain, Extremity swelling, Katherine nt pain, Joint swelling. Additional Review of Systems Respiratory Denies: Shortness of breath. Cardiovascular Denies: Chest pain. Portions of this section were scribed by Bobbi Dominguez on 05/04/19 at 1900 Past Medical History - Adult Stated Complaint LEFT LEG PAIN, DENIES TRAUMA Allergies Coded Allergies: No Known Allergies (05/04/19) Home Medications Reported Medications No Known Home Medications Review of Nursing Notes Reviewed Pt reports no significant: Past surgical history Past Medical History: Reports: Hypertension, Seizure disorder. Past Surgical History: Reports: Bilateral tubal ligation. Additional Surgical History RLE tib/fib fracture repair Alcohol Use Alcohol use (last drink was yesterda y) Smoking status for patients 13 years old or olde r: Current every day smoker Portions of this section were scribed by Bobbi Dominguez on 05/04/19 at 1932 Physical Exam Vital Signs Vital Signs First Documented: Result Date Time Pulse Ox 98 05/04 1848 B/P 142/75 05/04 1848 B/P Mean 97 05/04 1848 O2 Delivery Room air 05/04 1848 Temp 36.8 05/04 1848 Pulse 108 05/04 1848 Resp 18 05/04 1848 Last Documented: Result Date Time B/P 101/60 05/04 2021 B/P Mean 73 05/04 2021 Pulse Ox 98 05/04 1848 O2 Delivery Room air 05/04 1848 Temp 36.8 05/04 1848 Pulse 108 05/04 1848 Resp 18 05/04 1848 Review of Vital Signs Reviewed Focused PE General/Const General/Const Awake, Alert, No acute distress, Well developed, Cooperative Resp/Chest Respiratory/Chest Breath sounds NL, No respirat ory distress, No rales, No rhonchi, No wheezing Cardiovascular Cardiovascular Regular rhythm, Heart sounds NL Text/Dict Notes tachycardia MS Lower Extrem Text/Dict Notes Tenderness to posterior left calf, no erythema Palpable DP/PT pulses MS Ankle/Foot Text/Dict Note Tenderness over the left lat eral mallelous, Decreased ROM of the left ankle due to pain, Mild swelling to the L ankle Skin Skin Warm, Dry, Intact Neurologic Neurologic Oriented X3, Speech NL Additional PE MS Head Head Atraumatic, Normocephalic Eyes Eyes Conjunctiva NL, Pupils midline Ears/Nose/Throat Ears/Nose/Throat Airway patent, Mucous membrane s moist MS Neck Neck Supple Abdomen/GI Abdomen/GI Soft, Non-tender, No guarding, No re bound, No distention Portions of this section were scribed by Bobbi Dominguez on 05/04/19 at 1914 Interpretation Diagnostics Lab Results Interpretation Results Recent Impressions: RADIOLOGY - XR ANKLE 3 + V LT 05/04 1916 Report Impression - Status: SIGNED Entered: 05/04/20191930 IMPRESSION: No fracture or dislocation of the left ankle. SL: LANVU-H Impression By: Evelia Henderson M.D. ULTRASOUND - DUP VEIN UNI/LTD 05/04 2006 Report Impression - Status: SIGNED Entered: 05/04/20192010 IMPRESSION: No sonographic evidence for DVT in the left lowe r extremity veins. SL: LANVU-H Impression By: Evelia Henderson M.D. Imaging Statement Radiographic studies reviewed and considered in the medical decision-making. Point of Care Testing Pulse Oximetry Pulse Ox % 98 On: Room air Interpretation Interpreted by ok, Pulse oximetr y normal Time 1848 Radiography X-Ray Interpretation Text/Dict Note IMPRESSION: No fracture or dislocation of the left ankle. Order - Lower Extremity Ankle L Interpretation/Wet Read by Interpret - Radiolog ist Reviewed by ED physician Sonography US Soft Tissue/MS Text/Dict Note IMPRESSION: No sonographic evidence for DVT in the left lowe r extremity veins. Exam Interpreted by Radiologist Reviewed by ED physician Portions of this section were scribed by Bobbi Dominguez on 05/04/19 at 2014 Re-Evaluation MDM Free Text MDM Notes Free Text MDM Notes 33F prior provoked DVT presenting with left ankl e and calf pain Reports pain is primarily lateral left ankle - x ray negative Reports she is concerned as she has mild left calf pain and voiced concerns for DVT Has mild tenderness in calf region with no unila teral calf swelling erythema negative cyndy She is borderline tachycardic, no c/o CP or SOB Duplex Us negative for DVT Stable for discharge home ED Course Medication(s) Ordered Medication(s) Ordered: Central Nervous System Agents Sig/Charissa Start time Last Medication Dose Route Stop Time Status Admin Ibuprofen 600 MG X1ED STA 05/04 1858 DC 05/04 PO 05/04 1859 192 Portions of this section were scribed by Bobbi Dominguez on 05/04/19 at 1932 Patient Discharge Departure Vital Signs/Condition Vital Signs First Documented: Result Date Time Pulse Ox 98 05/04 1848 B/P 142/75 05/04 1848 B/P Mean 97 05/04 1848 O2 Delivery Room air 05/04 1848 Temp 36.8 05/04 1848 Pulse 108 05/04 1848 Resp 18 05/04 1848 Last Documented: Result Date Time B/P 101/60 05/04 2021 B/P Mean 73 05/04 2021 Pulse Ox 98 05/04 1848 O2 Delivery Room air 05/04 1848 Temp 36.8 05/04 1848 Pulse 108 05/04 1848 Resp 18 05/04 1848 All vital signs available at the time of this en try have been reviewed. Condition Stable Clinical Impression Clinical Impression Primary Impression: Leg pain, left Secondary Impressions: Left ankle pain Disposition Decision Discharge )( Discharged to Home Yes )( Time 2014 )( Date 05/04/19 Discharge/Care Plan Counseled Regarding Diagnosis, Imaging studies, Need for follow-up, When to return to ED Supervising Physician Note Scribe Statement Stacey Dominguez, 05/04/191858, scribing for and in th e presence of Dr. Dyer. Signed By: Stacey Dominguez, 05/04/191858 Provider Scribed Statement I personally performed the s ervices described in this documentation and reviewed the documentation that was dictated to the scrib e(s) in my presence, and it accurately records my words and actions. Galo Dyer, 05/04/19 Portions of this section were scribed by Bobbi Dominguez on 05/04/19 at 2014 Electronically Signed by Donato Dyer DO on at 2151 RPT #:[id number] END OF REPORT
[2023-03-30] MEDS ORDERED: ONDANSETRON 4 MG/2 ML VIAL ONE (17:34)
[2023-03-30] MEDS ORDERED: ACETAMINOPHEN 500 MG TAB ONE (17:34)
[2023-03-30] MEDS ORDERED: FAMOTIDINE 20 MG/2 ML VIAL IV ONE (17:34)
[2023-03-30] MEDS ORDERED: NA CHLORIDE 0.9% 1,000 ML ONE (17:34)
[2023-03-30 17:46] LABS: Specific Gravity 1.015 (1.005-1.030)
[2023-03-30 17:48] LABS: Specific Gravity 1.015 (1.005-1.030); Urine Bacteria 20-50 /HPF (<20); Urine Bilirubin NEGATIVE (Negative); Urine Blood 1+ (Negative); Urine Clarity Extremely Turbid (Clear); Urine Color Light-Orange (Yellow); Urine Glucose NEGATIVE (Negative); Urine Mucus 2+ /HPF (None Seen); Urine Protein 1+ (Negative); Urine Urobilinogen Normal (Normal); Urine WBC Clump Moderate /HPF (None Seen); Urine pH 5.5 (5.0-7.0)
[2023-03-30 17:50] LABS: Absolute Lymphocytes (CBC) 0.9 K/uL (0.7-4.9); Hematocrit 30.5 % (36.0-45.0); Lymphocytes % 7.2 % (15.3-44.8); MCV 72.4 fL (80-100); MPV 7.4 fL (7.6-11.3); RBC Red Blood Cell Count 4.21 M/uL (3.86-4.86)
[2023-03-30 17:51] LABS: Anisocytosis 1+; Blood Morphology Comment NOTED (NOT SEEN); Platelet Estimate ADEQ; White Blood Cell Scan OK (OK)
[2023-03-30 18:05] LABS: Albumin 3.2 g/dL (3.4-5.0); Bilirubin Total 0.6 mg/dL (0.2-1.0); Potassium 3.1 mEq/L (3.5-5.1); Protein, Total 8.4 g/dL (6.4-8.2)
--- NOTE | 2023-03-30 18:33 | RAD REPORT ---
EXAM DESCRIPTION: CTAbdomen Pelvis W Contrast - 03/30/2023 6:24 pm CLINICAL HISTORY: Abdominal pain. ABD PAIN COMPARISON: Abdomen Pelvis W Contrast dated 02/26/2017; CT ABD PELVIS W CONTRAST dated 08/23/2012; CT ABD PELVIS W CONTRAST dated 04/21/2012 TECHNIQUE: Biphasic CT imaging of the abdomen and pelvis was performed with 100 ml non-ionic IV cont rast. All CT scans are performed using dose optimization technique as appropriate and may include automated exposure control or mA/KV adjustment according to patient size. FINDINGS: The lung bases are clear. The liver, spleen, pancreas, adrenal glands and kidneys are within normal limits. No bowel obstruction, free air, free fluid or abscess. Significant fecal retention in the right colon . The appendix is not identified as a discrete structure, however, no secondary findings of appendici tis are identified. No evidence of significant lymphadenopathy. No suspicious bony findings. IMPRESSION: No acute intra-abdominal or pelvic finding. Significant fecal retention in the right colon.
--- NOTE | 2023-03-30 18:44 | EDPHYS ---
Physician Documentation [facility] Name: Kary Morales Age: 37 yrs Sex: Female : 1985 Arrival Date: 03/30/2023 Time: 17:07 Bed 18 Private MD: ED Physician Colby Krishnamurthy HPI: 03/30 18:18 This 37 yrs old Female presents to ER via Ambulatory with complaints of Fever, kb Abdominal Pain, Headache. 18:18 The patient presents with abdominal pain in the right upper quadrant, right lower kb quadrant. Onset: The symptoms/episode began/occurred 4 day(s) ago. The symptoms do not radiate. Associated signs and symptoms: Pertinent positives: fever, headache. The symptoms are described as constant. Modifying factors: The symptoms are alleviated by nothing, the symptoms are aggravated by nothing. Severity of pain: At its worst the pain was moderate in the emergency department the pain is unchanged. The patient has not experienced similar symptoms in the past. The patient has not recently seen a physician. Historical: - Allergies: 17:21 Demerol; ss 17:21 Dilaudid; ss 17:21 Morphine; ss 17:21 Tape; ss - PMHx: 17:21 Hypertension; Seizures; ss - PSHx: 17:21 tubal ligation; R leg; ss - Immunization history:: Client reports having NOT received the Covid vaccine. - Social history:: Smoking status: Patient reports the use of cigarette tobacco products, smokes one-half pack cigarettes per day. ROS: 18:16 Respiratory: Negative for shortness of breath, cough, wheezing, and pleuritic chest kb pain. 18:16 Constitutional: Positive for fever. 18:16 Abdomen/GI: Positive for abdominal pain, Negative for nausea, vomiting, and diarrhea. 18:16 All other systems are negative. 18:16 Neuro: Positive for headache. kb Exam: 18:16 Constitutional: This is a well developed, well nourished patient who is awake, alert, kb and in no acute distress. Head/Face: Normocephalic, atraumatic. ENT: Moist Mucous membranes Cardiovascular: Regular rate and rhythm with a normal S1 and S2. No gallops, murmurs, or rubs. No pulse deficits. Respiratory: Respirations even and unlabored. No increased work of breathing. Talking in full sentences Skin: Warm, dry with normal turgor. Normal color. MS/ Extremity: Pulses equal, no cyanosis. Neurovascular intact. Full, normal range of motion. Neuro: Awake and alert, GCS 15, oriented to person, place, time, and situation. Moves all extremities. Normal gait. 18:16 Abdomen/GI: Inspection: abdomen appears normal, Bowel sounds: normal, Palpation: soft, in all quadrants, moderate abdominal tenderness, in the right upper quadrant and right lower quadrant. Vital Signs: 17:19 BP 117 / 68; Pulse 93; Resp 16; Temp 102.1(O); Pulse Ox 97% ; Weight 63.5 kg; Height 5 ss ft. 2 in. ; Pain 10/10; 18:11 Temp 100.5(O); kc6 18:37 BP 112 / 59; Pulse 94; Resp 19 S; Pulse Ox 99% on R/A; kc6 19:53 Temp 99.7(O); kl 20:39 BP 115 / 66; kl 21:11 BP 116 / 78; Pulse 78; Resp 16; Pulse Ox 99% on R/A; kl 17:19 Body Mass Index 25.61 (63.50 kg, 157.48 cm) ss 17:19 Pain Scale: Adult ss MDM: 17:12 Patient medically screened. kb 18:18 Data reviewed: vital signs, nurses notes. kb 18:28 Differential diagnosis: appendicitis, cholecystitis, Cholelithiasis, non-specific abd kb pain. 18:43 Consideration of Admission/Observation Patient was admitted/placed on observation. kb Escalation of care including admission/observation considered. Management of patient was discussed with the following: Hospitalist: IDRIS Gonzales accepts pt for admission under Dr Dior. Counseling: I had a detailed discussion with the patient and/or guardian regarding: the historical points, exam findings, and any diagnostic results supporting the discharge/admit diagnosis, lab results, radiology results, the need for further work-up and treatment in the hospital. 03/30 17:21 Order name: Flu; Complete Time: 18:07 [facility] 03/30 17:21 Order name: SARS-COV-2 RT PCR; Complete Time: 18:22 [facility] 03/30 17:21 Order name: Strep [facility] 03/30 17:23 Order name: CBC with Diff; Complete Time: 17:59 03/30 17:23 Order name: CMP 03/30 17:23 Order name: Lipase 03/30 17:23 Order name: Test, Urine; Complete Time: 17:59 kb 03/30 17:23 Order name: Urinalysis w/ reflexes; Complete Time: 18:03 kb 03/30 17:51 Order name: CBC Smear Scan; Complete Time: 17:59 [facility] 03/30 17:59 Order name: Throat Culture [facility] 03/30 18:03 Order name: Urine Culture [facility] 03/30 18:39 Order name: Osmolality, Serum; Complete Time: 19:43 [facility] 03/30 18:39 Order name: Urine Creatinine; Complete Time: 19:30 [facility] 03/30 18:39 Order name: Urine Osmolality; Complete Time: 19:43 [facility] 03/30 18:39 Order name: Urine Sodium Random; Complete Time: 19:30 [facility] 03/30 18:39 Order name: Urine Potassium Random; Complete Time: 19:30 [facility] 03/30 18:39 Order name: Blood Culture Adult (2) [facility] 03/30 18:39 Order name: Lactate w/ 2H reflex if indic.; Complete Time: 19:30 [facility] 03/30 18:41 Order name: BNP; Complete Time: 19:30 [facility] 03/30 18:48 Order name: Uric Acid; Complete Time: 19:43 [facility] 03/30 17:23 Order name: CT Abd/Pelvis - IV Contrast Only; Complete Time: 18:37 03/30 18:41 Order name: Chest Single View XRAY [facility] 03/30 18:58 Order name: US Abdomen Limited [facility] 03/30 19:50 Order name: US; Complete Time: 19:56 [facility] 03/30 20:45 Order name: RAD [facility] 03/30 17:23 Order name: IV Saline Lock; Complete Time: 17:39 kb 03/30 17:23 Order name: Labs collected and sent; Complete Time: 17:39 kb Administered Medications: 17:33 Drug: Acetaminophen PO 1000 mg Route: PO; kc6 18:40 Follow up: Response: No adverse reaction; Temperature is decreased kc6 17:39 Drug: NS 0.9% IV 1000 ml Route: IV; Rate: 1 bolus; Site: left antecubital; kc6 17:39 Drug: Famotidine IVP 20 mg Route: IVP; Site: left antecubital; kc6 18:40 Follow up: Response: No adverse reaction kc6 17:39 Drug: Ondansetron IVP 4 mg Route: IVP; Site: left antecubital; kc6 18:40 Follow up: Response: No adverse reaction kc6 21:11 Drug: Potassium PO Effervescent Tablet 50 mEq Route: PO; kl 21:15 Follow up: Response: No adverse reaction kl 21:11 Drug: Rocephin IV 1 grams Route: IV; Rate: calculated rate; Site: left antecubital; kl 21:14 Follow up: Response: No adverse reaction kl Disposition Summary: 03/30/23 18:44 Hospitalization Ordered Hospitalization Status: Observation kb Provider: Chapo Dior Location: Telemetry/MedSurg (observation) kb Condition: Stable kb Problem: new kb Symptoms: are unchanged kb Bed/Room Type: Standard Room Assignment: 220(03/30/23 19:10) cg Diagnosis - UTI/ Urinary tract infection, site not specified kb - Hyponatremia kb Forms: - Medication Reconciliation Form kb - SBAR form kb Addendum: 04/02/2023 07:31 Co-signature as Attending Physician, Colby Krishnamurthy MD I reviewed the patient's care r n provided by the Advanced Practice Provider and agree with the diagnosis and treatment plan. Signatures: Dispatcher [employer] Nancy Carey, JEWEL BEARING GRINDER-C MARIO-Ckb Nancy El RN RN kl Nieto, Roman, MD MD rn Blanchard, Shelby, RN RN ss Attema, Lee, FNP-C JEWEL [employer]ARING GRINDER-Cla1 Connie Mata RN RN cg Campbell, Kaitlyn, RN RN kc6 Corrections: (The following items were deleted from the chart) 03/30 19:10 18:44 kb cg
--- NOTE | 2023-03-30 18:44 | ER ---
Nurse's Notes [facility] Name: Kary Morales Age: 37 yrs Sex: Female : 1985 Arrival Date: 03/30/2023 Time: 17:07 Bed 18 Private MD: Diagnosis: UTI/ Urinary tract infection, site not specified;Hyponatremia Presentation: 03/30 17:19 Chief complaint: Patient states: fever and headache that have been ongoing x 4 days. ss Has not taken any medication for fever today. Coronavirus screen: Client denies travel out of the [place] in the last 14 days. Ebola Screen: Patient denies exposure to infectious person. Patient denies travel to an Ebola-affected area in the 21 days before illness onset. Initial Sepsis Screen: Does the patient meet any 2 criteria? No. Patient's initial sepsis screen is negative. Does the patient have a suspected source of infection? No. Patient's initial sepsis screen is negative. Risk Assessment: Do you want to hurt yourself or someone else? Patient reports no desire to harm self or others. Onset of symptoms was March 26, 2023. 17:19 Method Of Arrival: Ambulatory ss 17:19 Acuity: ALMA DELIA 3 ss Historical: - Allergies: 17:21 Demerol; ss 17:21 Dilaudid; ss 17:21 Morphine; ss 17:21 Tape; ss - PMHx: 17:21 Hypertension; Seizures; ss - PSHx: 17:21 tubal ligation; R leg; ss - Immunization history:: Client reports having NOT received the Covid vaccine. - Social history:: Smoking status: Patient reports the use of cigarette tobacco products, smokes one-half pack cigarettes per day. Screenin:15 [facility] ED Fall Risk Assessment (Adult) History of falling in the last 3 months, kc6 including since admission No falls in past 3 months (0 pts) Confusion or Disorientation No (0 pts) Intoxicated or Sedated No (0 pts) Impaired Gait No (0 pts) Mobility Assist Device Used No (0 pt) Altered Elimination No (0 pt) Score/Fall Risk Level 0 - 2 = Low Risk. Abuse screen: Denies threats or abuse. Denies injuries from another. Nutritional screening: No deficits noted. Tuberculosis screening: No symptoms or risk factors identified. Assessment: 17:15 General: Appears in no apparent distress. comfortable, ill, Behavior is calm, kc6 cooperative, appropriate for age. Pain: Complains of pain in right lower quadrant and right upper quadrant. Neuro: Level of Consciousness is awake, alert, obeys commands, Oriented to person, place, time, situation, Appropriate for age. Cardiovascular: Capillary refill < 3 seconds. Respiratory: Reports cough that is Airway is patent Trachea midline Respiratory effort is even, unlabored, Respiratory pattern is regular, symmetrical. GI: Abdomen is flat, non-distended, Bowel sounds present X 4 quads. Abd is soft and non tender X 4 quads. Patient currently denies diarrhea, nausea, vomiting. : No signs and/or symptoms were reported regarding the genitourinary system. Derm: No signs and/or symptoms reported regarding the dermatologic system. Skin is intact, is healthy with good turgor, Skin is pink, warm \T\ dry. Musculoskeletal: No signs and/or symptoms reported regarding the musculoskeletal system. Circulation, motion, and sensation intact. Capillary refill < 3 seconds, Range of motion: intact in all extremities. 18:15 Reassessment: Patient appears in no apparent distress at this time. No changes from kc6 previously documented assessment. Patient and/or family updated on plan of care and expected duration. Pain level reassessed. Patient is alert, oriented x 3, equal unlabored respirations, skin warm/dry/pink. 19:20 General: Appears in no apparent distress. comfortable, Behavior is calm, cooperative. kl Pain: Complains of pain in right lower quadrant and right upper quadrant Pain currently is 2 out of 10 on a pain scale. Neuro: No deficits noted. Cardiovascular: No deficits noted. Respiratory: No deficits noted. 20:01 Reassessment: admission delay unable to obtain 2nd set of blood cultures lab paged x 2. kl 21:11 Reassessment: Patient appears in no apparent distress at this time. Patient states kl feeling better. Patient states symptoms have improved. Vital Signs: 17:19 BP 117 / 68; Pulse 93; Resp 16; Temp 102.1(O); Pulse Ox 97% ; Weight 63.5 kg; Height 5 ss ft. 2 in. ; Pain 10/10; 18:11 Temp 100.5(O); kc6 18:37 BP 112 / 59; Pulse 94; Resp 19 S; Pulse Ox 99% on R/A; kc6 19:53 Temp 99.7(O); kl 20:39 BP 115 / 66; kl 21:11 BP 116 / 78; Pulse 78; Resp 16; Pulse Ox 99% on R/A; kl 17:19 Body Mass Index 25.61 (63.50 kg, 157.48 cm) ss 17:19 Pain Scale: Adult ss ED Course: 17:10 Patient arrived in ED. im 17:11 Nancy [facility] FNP-C [facility]. kb 17:11 Colby Krishnamurthy MD is Attending Physician. kb 17:15 Yissel Duff, RENATO is Primary Nurse. kc6 17:15 Patient has correct armband on for positive identification. Placed in gown. Bed in low kc6 position. Call light in reach. Side rails up X 1. Adult w/ patient. 17:21 Triage completed. ss 17:21 Arm band placed on right wrist. ss 17:33 Test, Urine Sent. kc6 17:33 Urinalysis w/ reflexes Sent. kc6 18:26 CT Abd/Pelvis - IV Contrast Only In Process Unspecified. EDMS 18:44 Chapo Dior MD is Hospitalizing Provider. kb 21:11 No provider procedures requiring assistance completed. Patient admitted, IV remains in kl place. Administered Medications: 17:33 Drug: Acetaminophen PO 1000 mg Route: PO; kc6 18:40 Follow up: Response: No adverse reaction; Temperature is decreased kc6 17:39 Drug: NS 0.9% IV 1000 ml Route: IV; Rate: 1 bolus; Site: left antecubital; kc6 17:39 Drug: Famotidine IVP 20 mg Route: IVP; Site: left antecubital; kc6 18:40 Follow up: Response: No adverse reaction kc6 17:39 Drug: Ondansetron IVP 4 mg Route: IVP; Site: left antecubital; kc6 18:40 Follow up: Response: No adverse reaction kc6 21:11 Drug: Potassium PO Effervescent Tablet 50 mEq Route: PO; kl 21:15 Follow up: Response: No adverse reaction kl 21:11 Drug: Rocephin IV 1 grams Route: IV; Rate: calculated rate; Site: left antecubital; kl 21:14 Follow up: Response: No adverse reaction Medication: 21:14 VIS not applicable for this client. argelia Outcome: 18:44 Decision to Hospitalize by Provider. kb 21:13 Admitted to Med/surg accompanied by tech, via wheelchair, Report called to Connie stout 21:13 Condition: improved 21:13 Discharge instructions given to patient, family, Instructed on the need for admit. 21:21 Patient left the ED. argelia Signatures: Dispatcher [employer] EDNancy Phipps, MARIO-C MARIO-Nancy Cunningham RN RN Swati Tipton, RENATO RN Yissel Duff RN RN kc6 Fariha Euceda
--- NOTE | 2023-03-30 19:17 | P.HP ---
Certification for Inpatient Patient admitted to: Inpatient With expected LOS: >2 Midnights Patient will require the following post-hospital care: None Practitioner: I am a practitioner with admitting privileges, knowledge of patient current condition, hospital course, and medical plan of care. Services: Services provided to patient in accordance with Admission requirements found in Title 42 Section 412.3 of the Code of Federal Regulations Patient History Date of Service: 03/30/23 Reason for admission: Sepsis, UTI, hyponatremia History of Present Illness: 37-year-old female with history of hypertension, seizure, iron deficiency anemia disorder presents to the emergency department chief complaint of fever, abdominal pain over the course of last 4 days. Her abdominal pain is in her lower abdomen as well as bilateral flanks. She is evaluated in the emergency department her labs are significant for leukocytosis white blood cell 12.7 hemoglobin 9.4 hematocrit 30.5 sodium 124 potassium 3.1 urinalysis demonstrates urinary tract infection CT abdomen pelvis with IV contrast was performed which revealed no acute intra-abdominal or pelvic findings, significant fecal retention in the right colon. 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 At this point I believe this is likely hypovolemic, dehydration. She was given 1 L normal saline bolus in the ER, will follow-up sodium in 4 hours. 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 moist/pink, EOMI, Sclerae nonicteric Neck: Supple, 2+ carotid pulse no bruit, No LAD, Without JVD or thyroid abnormality Respiratory: Clear to auscultation bilaterally, Normal air movement Cardiovascular: No edema, Regular rate/rhythm, Normal S1 S2 Capillary refill: <2 Seconds Gastrointestinal: Normal bowel sounds, Tenderness (Lower abdominal tenderness, right upper quadrant tenderness, left flank tenderness) Musculoskeletal: No tenderness Integumentary: No rashes Neurological: Normal speech, Normal strength at 5/5 x4 extr, Normal tone, Normal affect - Studies Laboratory Data (last 24 hrs) 03/30/23 17:36: Sodium 124 L, Potassium 3.1 L, BUN 9, Creatinine 0.90, Glucose 93, Total Bilirubin 0.6, AST 10 L, ALT 13, Alkaline Phosphatase 60, Lipase 28 03/30/23 17:36: WBC 12.70 H, Hgb 9.4 L, Hct 30.5 L, Plt Count 401 Microbiology Data (last 24 hrs): 03/30/23 17:38 Nasopharnyx Influenza Type A Antigen Screen - Final 03/30/23 17:38 Nasopharnyx Influenza Type B Antigen Screen - Final 03/30/23 17:38 Throat Group A Streptococcus Rapid Screen - Final Assessment and Plan - Plan Assessment: Sepsis secondary to UTI Hyponatremia, Hypokalemia Iron deficiency anemia History of hypertension History of seizure disorder Plan: Sepsis secondary to UTI SIRS criteria present including fever, leukocytosis, tachycardia. Source infection confirmed with urinary tract infection, continue Rocephin, blood cult ures lactate obtained and pending. Patient is having some right upper quadrant tenderness and pain, will obtain ultrasound to rule out cholecystitis. Hyponatremia, Hypokalemia Given 1 L normal saline bolus in the ER, potassium replaced in ED, will hold off additional IV fluids, recheck chemistry in 4 hours. Additional labs ordered. Iron deficiency anemia Patient with history of SALLIE, noncompliant with iron therapy, has heavy menstrual cycles. Will obtain ID labs. Transfuse if hemoglobin less than 7. History of hypertension Patient not on any home medications at this time, monitor blood pressure during hospitalization, evaluated for antihypertensive agents at discharge. History of seizure disorder Has not had a seizure since 2006. Not on any medications at home. DVT PPX: Lovenox Code status: Full Discharge Plan: Home Plan to discharge in: 48 Hours - Advance Directives Does patient have a Living Will: No Does patient have a Durable POA for Healthcare: No - Code Status/Comfort Care Code Status Assessed: Yes (Full code) Critical Care: No Time Spent Managing Pts Care (In Minutes): 70
--- NOTE | 2023-03-30 19:49 | RAD REPORT ---
EXAM DESCRIPTION: US - Abdomen Exam Limited - 03/30/2023 7:36 pm CLINICAL HISTORY: ABD PAIN COMPARISON: No comparisons FINDINGS: The gallbladder demonstrates adherent gallstones versus small polyps. No pericholecystic f luid or gallbladder wall thickening. The common bile duct is normal measuring 4 mm. The liver demonstrates no findings of intrahepatic biliary dilatation. IMPRESSION: Adherent gallstone versus small polyps.
--- NOTE | 2023-03-30 20:44 | RAD REPORT ---
EXAM DESCRIPTION: RAD - Chest Single View - 03/30/2023 8:03 pm CLINICAL HISTORY: fever, eval volume status (hyponatremia) Chest pain. COMPARISON: No comparisons FINDINGS: Portable technique limits examination quality. The lungs are grossly clear. The heart is normal in size. No displaced fractures. IMPRESSION: No acute intrathoracic process suspected.
[2023-03-30] MEDS ORDERED: CEFTRIAXONE 1000 MG/VIAL ONE (20:51)
[2023-03-30] MEDS ORDERED: POTASSIUM 25 MEQ EFFERV TAB ONE (20:51)
[2023-03-30 21:40] VITALS: BMI 25.7
[2023-03-30] MEDS ORDERED: ACETAMINOPHEN 500 MG TAB PO PRN (21:41)
[2023-03-30] MEDS ORDERED: MORPHINE 2 MG/ML SYR IV PRN (21:41)
[2023-03-30] MEDS ORDERED: ONDANSETRON 4 MG/2 ML VIAL IV PRN (21:41)
[2023-03-30 21:54] VITALS: O2SAT 99
[2023-03-30 22:56] LABS: Potassium 3.5 mEq/L (3.5-5.1)
[2023-03-30] MEDS: Ringers Lactate 1,000 ML IV SCH (23:45)
[2023-03-31] MEDS ORDERED: HYDROCODONE/APAP 5/325 MG TAB PO ONE (02:50)
[2023-03-31 04:05] LABS: Absolute Lymphocytes (CBC) 1.1 K/uL (0.7-4.9); MCV 72.6 fL (80-100); MPV 8.2 fL (7.6-11.3); RBC Red Blood Cell Count 3.72 M/uL (3.86-4.86)
[2023-03-31 04:29] LABS: Potassium 3.6 mEq/L (3.5-5.1)
[2023-03-31 04:30] LABS: Ferritin 29.6 ng/mL (8-388); Phosphorus 1.6 mg/dL (2.5-4.9); Thyroid Stimulating Hormone 1.46 uIU/mL (0.358-3.740)
[2023-03-31] MEDS: POTASS/SODIUM PHOSPHATE 1 PKT POWD.PACK PO SCH ×3 (08:55→10:49)
[2023-03-31] MEDS: ENOXAPARIN 40 MG/0.4 ML SQ SCH (08:55)
[2023-03-31] MEDS ORDERED: POTASSIUM CL SA 10 MEQ TAB PO ONE (09:00)
[2023-03-31] MEDS: MORPHINE 2 MG/ML SYR IV PRN ×2 (11:03→16:57)
[2023-03-31] MEDS: Ringers Lactate 1,000 ML IV SCH ×2 (13:56→19:45)
--- NOTE | 2023-03-31 18:56 | P.PN ---
Subjective Date of Service: 03/31/23 Chief Complaint: Sepsis, UTI, hyponatremia She continues to spike intermittent fevers. She reports dysuria and slight abdominal discomfort. She denies any chest pain, palpitations, or shortness of breath. Review of Systems 10-point ROS is otherwise unremarkable General: Fever, Chills, Sweats Gastrointestinal: Abdominal Pain Genitourinary: Dysuria Physical Examination - Vital Signs Temperature: 100.2 F Blood Pressure: 100/57 Pulse: 85 Respirations: 18 Pulse Ox (%): 97 - Physical Exam General: Alert, In no apparent distress, Oriented x3 HEENT: Atraumatic, Mucous membr. moist/pink, Sclerae nonicteric Neck: JVD not distended Respiratory: Clear to auscultation bilaterally, Normal air movement Cardiovascular: No edema, Regular rate/rhythm, Normal S1 S2, No gallops, No rubs, No murmurs Gastrointestinal: Normal bowel sounds, Soft and benign, Non-distended, No tenderness, No rebound, No guarding Musculoskeletal: No clubbing Integumentary: No rashes Neurological: Normal speech, Normal affect - Studies Laboratory Data (last 24 hrs) 03/30/23 17:36: Uric Acid 2.7 03/30/23 17:36: Sodium 130 L Microbiology Data (last 24 hrs): 03/30/23 17:38 Nasopharnyx Influenza Type A Antigen Screen - Final 03/30/23 17:38 Nasopharnyx Influenza Type B Antigen Screen - Final 03/30/23 17:38 Throat Group A Streptococcus Rapid Screen - Final Assessment And Plan - Plan # Sepsis likely secondary to Urinary Tract Infection She met SIRS criteria based on temperature > 100.9 F, HR > 90 bpm, and WBC > 12,000, and the suspected source is urinary. - Sepsis order set was initiated - Urinalysis = 1+ blood, 2+ nitrite, 500 leukocyte esterase, >50 WBCs, 20-50 bacteria, 1+ protein - Chest x-ray = "no acute intrathoracic process suspected." - CT abdomen/pelvis = "no acute intra-abdominal or pelvic finding. Significan t fecal retention in the right colon" - Initial Lactate was 1.2 - Blood cultures drawn before antibiotics were given - Broad spectrum antibiotics started: Ceftriaxone - In regards to fluids: - 30 mL/kg of IV fluids was not administered given SBP > 90, MAP > 65, lactic acid < 4 # Gallstone vs Galbladder Polyp - US abdomen = "adherent gallstone versus small polyps." - Follow-up with General Surgery as an outpatient to discuss elective cholecystectomy due to malignancy potential # History of Hypertension # History of Seizures - Not on medication at home # Iron Deficiency Anemia - Iron studies pending - Hold off on iron replacement given fecal retention Chapo Dior M.D.
[2023-03-31] MEDS: CEFTRIAXONE 1,000 MG in NA CHLORIDE 0.9% 50 ML IVPB SCH (21:13)
[2023-04-01 05:31] LABS: Absolute Lymphocytes (CBC) 0.8 K/uL (0.7-4.9); Hematocrit 23.8 % (36.0-45.0); Lymphocytes % 13.2 % (15.3-44.8); MCV 72.3 fL (80-100); MPV 7.9 fL (7.6-11.3); RBC Red Blood Cell Count 3.29 M/uL (3.86-4.86)
[2023-04-01] MEDS: Ringers Lactate 1,000 ML IV SCH (05:45)
[2023-04-01 05:47] LABS: Phosphorus 3.2 mg/dL (2.5-4.9); Potassium 4.6 mEq/L (3.5-5.1)
[2023-04-01] MEDS ORDERED: DOCUSATE NA 100 MG CAP PO PRN (05:53)
[2023-04-01] MEDS: MORPHINE 2 MG/ML SYR IV PRN ×3 (06:15→21:08)
[2023-04-01 06:42] LABS: Anisocytosis 1+; Blood Morphology Comment NOTED (NOT SEEN); Platelet Estimate ADEQ; White Blood Cell Scan OK (OK)
[2023-04-01] MEDS: ENOXAPARIN 40 MG/0.4 ML SQ SCH (07:52)
--- NOTE | 2023-04-01 18:28 | P.PN ---
Subjective Date of Service: 04/01/23 Chief Complaint: Sepsis, UTI, hyponatremia She continues to improve daily. Temperature trend continues to improve. Her dysuria has improved significantly. She denies any chest pain, palpitations, or shortness of breath. Review of Systems 10-point ROS is otherwise unremarkable Gastrointestinal: Abdominal Pain Genitourinary: Dysuria Physical Examination - Vital Signs Temperature: 97.0 F Blood Pressure: 96/54 Pulse: 74 Respirations: 14 Pulse Ox (%): 100 - Studies Microbiology Data (last 24 hrs): 03/30/23 17:38 Throat Group A Streptococcus Rapid Screen - Final 03/30/23 17:38 Throat Culture & Sensitivity - Final NORMAL UPPER RESPIRATORY TIAN GROWN. Assessment And Plan - Plan - Physical Exam General: Alert, In no apparent distress, Oriented x3 HEENT: Atraumatic, Mucous membr. moist/pink, Sclerae nonicteric Respiratory: Clear to auscultation bilaterally, Normal air movement Cardiovascular: No edema, Regular rate/rhythm, No murmurs Gastrointestinal: Normal bowel sounds, Soft, Non-distended, No tenderness Musculoskeletal: No clubbing Integumentary: No rashes Neurological: Normal speech, Normal affect # Sepsis likely secondary to Urinary Tract Infection She met SIRS criteria based on temperature > 100.9 F, HR > 90 bpm, and WBC > 12,000, and the suspected source is urinary. - Sepsis order set was initiated - Urinalysis = 1+ blood, 2+ nitrite, 500 leukocyte esterase, >50 WBCs, 20-50 bacteria, 1+ protein - Chest x-ray = "no acute intrathoracic process suspected." - CT abdomen/pelvis = "no acute intra-abdominal or pelvic finding. Significant fecal retention in the right colon" - Initial Lactate was 1.2 - Blood cultures drawn before antibiotics were given - Broad spectrum antibiotics started: Ceftriaxone - In regards to fluids: - 30 mL/kg of IV fluids was not administered given SBP > 90, MAP > 65, lactic acid < 4 # Gallstone vs Galbladder Polyp - US abdomen = "adherent gallstone versus small polyps." - Follow-up with General Surgery as an outpatient to discuss elective cholecystectomy due to malignancy potential # History of Hypertension # History of Seizures - Not on medication at home # Iron Deficiency Anemia - Iron studies pending - Hold off on iron replacement given fecal retention Chapo Dior M.D.
[2023-04-01] MEDS: CEFTRIAXONE 1,000 MG in NA CHLORIDE 0.9% 50 ML IVPB SCH (20:11)
--- NOTE | 2023-04-01 20:43 | P.PN ---
Date of Service: 04/02/23 Subjective: ROS: 10 point ROS as noted above, otherwise negative Physical Exam: Gen: Alert,oriented, NAD HEENT: normal conjunctiva, sclera anicteric CV: regular rate & rhythm, no edema Pulm: non-labored respirations on room air, clear bilaterally Abd: soft, non-tender, non-distended MSK: no joint tenderness Integumentary: No rashes Neuro: normal speech, normal affect, moves all extremities Problem List: 1. Sepsis likely secondary to UTI 2. Gallstone vs Galbladder Polyp 3. History of Hypertension 4. History of Seizures 5. Iron Deficiency Anemia PLAN Urinalysis: 1+ blood, 2+ nitrite, 500 LE, >50 WBCs, 20-50 bacteria, 1+ protein CXR, CT chest(03/30): both negative for acute findings Abdominal u/s (03/30): adherent gallstone versus small polyps. Blood culture: NGTD Urine culture: GNR Continue Rocephin(03/31-) f/u with General Surgery as an outpatient to discuss elective cholecystectomy due to malignancy potential Iron studies pending VTE: Lovenox
[2023-04-02 04:47] LABS: Absolute Lymphocytes (CBC) 1.1 K/uL (0.7-4.9); Hematocrit 24.8 % (36.0-45.0); Lymphocytes % 24.5 % (15.3-44.8); MCV 72.3 fL (80-100); MPV 7.7 fL (7.6-11.3); RBC Red Blood Cell Count 3.44 M/uL (3.86-4.86)
[2023-04-02 05:00] LABS: Potassium 3.3 mEq/L (3.5-5.1)
[2023-04-02] MEDS ORDERED: POTASSIUM CL SA 10 MEQ TAB PO ONE (09:00)
[2023-04-02] MEDS: ENOXAPARIN 40 MG/0.4 ML SQ SCH (09:09)
[2023-04-02] MEDS: MORPHINE 2 MG/ML SYR IV PRN (11:30)
[2023-04-02 16:06] VITALS: BP 109/60; TEMP 97.7
[2023-04-02] MEDS ORDERED: CEFDINIR 300 MG CAP PO SCH (21:00)
== END 2023-04-02 19:16 | disposition home or self-care (01) | DRG 872 ==
LOC: ER 17:07 → ERHOLD 19:04 → 2ND 21:56 → UNDODISIN 04-02 16:55
PROVIDERS: ADMIT Internal Medicine; ATTEND Hospitalist
DX: A41.9 Sepsis, unspecified organism (principal); N39.0 Urinary tract infection, site not specified; E87.1 Hypo-osmolality and hyponatremia; I10 Essential (primary) hypertension; E86.0 Dehydration; E87.6 Hypokalemia; D50.9 Iron deficiency anemia, unspecified; F17.210 Nicotine dependence, cigarettes, uncomplicated; Z88.5 Allergy status to narcotic agent; Z88.8 Allergy status to other drugs, medicaments and biological substances; Z98.51 Tubal ligation status; Z28.310 Unvaccinated for COVID-19; Z91.048 Other nonmedicinal substance allergy status; Z20.822 Contact with and (suspected) exposure to COVID-19
CPT/HCPCS: 36415; 71045; 74177; 76705; 80048; 80053; 80061; 81001; 81025; 82550; 82570; 82728; 83605; 83690; 83735; 83880; 83930; 83935; 84100; 84132; 84300; 84439; 84443; 84550; 85018; 85025; 87040; 87070; 87077; 87081; 87086; 87088; 87186; 87635; 87804; 96374; 96375; 99285; J0696; J1650; J2270; J2405; J7030; J7120; Q9967

== ENCOUNTER 2023-04-19 10:47 | Emergency (ER) | payer OTHER ==
--- OUTSIDE RECORDS SUMMARY | 2023-04-19 10:58 | XMS REPORT | Continuity of Care Document ---
:1985 Author Organization [facility] t Address [address] [place] [address] Care Team Providers Name Role Phone Unavailable Unavailable Unavailable Payers Payer Name Policy Type Policy Number Effective Date Expiration Date S ource Problems This patient has no known problems. Allergies, Adverse Reactions, Alerts Allergy Allergy Status Severity Reaction(s) Onset Inactive Treating Comm ents Source Name Type Date Date Clinician No Known DA Active U [facility] Allergie 05-04 Clear s 00:00: Adams [address] [place] [address] Medications This patient has no known medications. Procedures This patient has no known procedures. Results Test Description Test Time Test Comments Results Result [facility] e Comments - DUP VEIN UNI/LTD 2019-05-04 Name: 20:08:00 [facility] [place] : 1985 Age/S: 33 / F [address] [place] [address] Blvd Unit #: [id number] Loc: [place] [address] Phys: Donato Dyer DO Acct: [id number] Dis Date: Status: REG ER PHONE #: [phone] Exam Date: 05/04/20192005 FAX #: [phone] Reason: Left calf pain swelling eval for DVT EXAMS: CPT CODE: [id number] DUP VEIN UNI/LTD 81292 Clinical Indication: Left calf pain swelling eval [...] V 2019-05-04 FAX: Donato Starks 19:28:00 DO [phone] [place]: St: PRE Name: IGLESIA HUGO [facility] : 1985 Age/S: 33/F [address] [place] [address] Unit #: [id number] Loc: [place] [address] Phys: Donato Dyer DO Acct: [id number] Dis Date: Status: PRE ER PHONE #: [phone] Exam Date: 05/04/20191915 FAX #: [phone] Reason: left ankle pain EXAMS: CPT CODE: [id number] XR ANKLE 3 + V LT [id number] Clinical Indication: left ankle pain; Comparison: None [...] Note Provider Source 2019-05-04 18:59:00-00:00 [facility] EMERGENCY PROVIDER REPORT REPORT#:[id number] REPORT STATUS: Signed DATE:05/04/19 TIME: 1858 PATIENT: IGLESIA HUGO UNIT #: [id number] ROOM/BED: AGE: 33 SEX: F PCP PHYS: No Primary or Family Ph ysician SERVICE AUTHOR: Donato Dyer DO * ALL edits or amendments must be made on the [employer]/computer document * HPI-Extremity Prob Lower General Confirmed [...] dislocation of the left ankle. SL: HEATHERU-H Impression By: Evelia Henderson M.D. ULTRASOUND - DUP VEIN UNI/LTD 05/04 2006 Report Impression - Status: SIGNED Entered: 05/04/20192010 IMPRESSION: No sonographic evidence for DVT in the left lowe r extremity veins. SL: MARY-H Impression By: Evelia Henderson M.D. Imaging Statement Radiographic studies reviewed and considered in the medical decision-making. Point of Care Testing Pulse Oximetry Pulse Ox % 98 On: Room air Interpretation Interpreted by ga, Pulse oximetr y normal Time 1848 Radiography [...] Donato Dyer DO on at 2151 RPT #:[id number] END OF REPORT
[2023-04-19 13:43] LABS: Absolute Lymphocytes (CBC) 1.1 K/uL (0.7-4.9); Hematocrit 25.7 % (36.0-45.0); MPV 7.1 fL (7.6-11.3); Platelets 349 thou/uL (152-406); RBC Red Blood Cell Count 3.57 M/uL (3.86-4.86)
[2023-04-19 14:03] LABS: ALT/SGPT 21 U/L (13-56); AST/SGOT 17 U/L (15-37); Albumin 3.4 g/dL (3.4-5.0); Alkaline Phosphatase 49 U/L (45-117); BUN Blood Urea Nitrogen 11 mg/dL (7-18); Bicarbonate 25 mEq/L (21-32); Bilirubin Direct < 0.1 mg/dL (0-0.2); Bilirubin Indirect, Calculated ND mg/dL (0.2-0.8); Bilirubin Total 0.2 mg/dL (0.2-1.0); Glomerular Filtration Rate 111 ml/min (=/>90); Glucose Level 130 mg/dL (74-106); NT PRO-BNP 334 pg/mL (<125); Potassium 3.4 mEq/L (3.5-5.1); Protein, Total 7.4 g/dL (6.4-8.2); Sodium Level 139 mEq/L (136-145)
--- NOTE | 2023-04-19 14:56 | EDPHYS ---
Physician Documentation [facility] Name: Kary Morales Age: 37 yrs Sex: Female : 1985 Arrival Date: 04/19/2023 Time: 10:47 Bed 10 Private MD: ED Physician Magalie Hackett HPI: 04/19 14:50 This 37 yrs old Female presents to ER via Ambulatory with complaints of Feet Swelling, sp3 Hand Swelling, Arm Pain - Right. 14:50 37-year-old female with history of hypertension and seizures presents today for diffuse sp3 joint swelling and pain. Patient was admitted last week for dehydration, hyponatremia, hypokalemia and she is concerned today for similar symptoms. She denies any change in urine output or any other new medications. She denies fever, travel history, known sick contacts, bleeding, headache, URI symptoms, chest pain, shortness of breath, abdominal pain, nausea, vomiting, diarrhea or any other rash or other new symptoms on ROS.. Historical: - Allergies: 11:09 Demerol; bp 11:09 Dilaudid; bp 11:09 Morphine; bp 11:09 Tape; bp - PMHx: 11:09 Hypertension; Seizures; bp - PSHx: 11:09 tubal ligation; r leg; bp - Immunization history:: Adult Immunizations up to date. - Social history:: Smoking status: unknown. ROS: 14:51 Constitutional: Negative for fever, chills, and weight loss, Eyes: Negative for injury, sp3 pain, redness, and discharge, ENT: Negative for injury, pain, and discharge, Neck: Negative for injury, pain, and swelling, Cardiovascular: Negative for chest pain, palpitations, and edema, Respiratory: Negative for shortness of breath, cough, wheezing, and pleuritic chest pain, Abdomen/GI: Negative for abdominal pain, nausea, vomiting, diarrhea, and constipation, Back: Negative for injury and pain, Skin: Negative for injury, rash, and discoloration, Neuro: Negative for headache, weakness, numbness, tingling, and seizure, Psych: Negative for depression, anxiety, suicide ideation, homicidal ideation, and hallucinations. 14:51 All other systems are negative. Exam: 14:52 Constitutional: This is a well developed, well nourished patient who is awake, alert, sp3 and in no acute distress. Head/Face: Normocephalic, atraumatic. Eyes: Pupils equal round and reactive to light, extra-ocular motions intact. Lids and lashes normal. Conjunctiva and sclera are non-icteric and not injected. Cornea within normal limits. Periorbital areas with no swelling, redness, or edema. ENT: Nares patent. No nasal discharge, no septal abnormalities noted. External auditory canals are clear. Oropharynx with no redness, swelling, or masses, exudates, or evidence of obstruction, uvula midline. Mucous membranes moist. Neck: Trachea midline, no thyromegaly or masses palpated, and no cervical lymphadenopathy. Supple, full range of motion without nuchal rigidity, or vertebral point tenderness. No Meningismus. Chest/axilla: Normal chest wall appearance and motion. Nontender with no deformity. No lesions are appreciated. Cardiovascular: Regular rate and rhythm with a normal S1 and S2. No gallops, murmurs, or rubs. Normal PMI, no JVD. No pulse deficits. Respiratory: Lungs have equal breath sounds bilaterally, clear to auscultation and percussion. No rales, rhonchi or wheezes noted. No increased work of breathing, no retractions or nasal flaring. Abdomen/GI: Soft, non-tender, with normal bowel sounds. No distension or tympany. No guarding or rebound. No evidence of tenderness throughout. Back: No spinal tenderness. No costovertebral tenderness. Full range of motion. Skin: Warm, dry with normal turgor. Normal color with no rashes, no lesions, and no evidence of cellulitis. Neuro: Awake and alert, GCS 15, oriented to person, place, time, and situation. Cranial nerves II-XII grossly intact. Motor strength 5/5 in all extremities. Sensory grossly intact. Cerebellar exam normal. Normal gait. Psych: Awake, alert, with orientation to person, place and time. Behavior, mood, and affect are within normal limits. 14:52 Musculoskeletal/extremity: Diffuse swelling of bilateral hands and feet in the joint regions. Neurovascular exam distally is normal. There is no pitting edema.. 14:54 ECG was reviewed by the Attending Physician. EKG demonstrates normal sinus rhythm at 60 sp3 bpm with normal intervals, normal QRS, normal axis, normal axis ST segments without evidence of acute ischemia. Vital Signs: 11:08 BP 143 / 87; Pulse 84; Resp 16; Temp 98; Pulse Ox 98% ; bp 13:30 BP 125 / 85; Pulse 73; Resp 22; Pulse Ox 99% on R/A; Pain 8/10; nj1 14:54 BP 130 / 88; Pulse 75; Resp 21; Pulse Ox 99% on R/A; nj1 13:30 Pain Scale: Adult nj1 MDM: 11:39 Patient medically screened. sp3 14:52 Data reviewed: vital signs, nurses notes, old medical records, lab test result(s), EKG, sp3 radiologic studies. ED course: 37-year-old female with extensive joint swelling. Differential diagnosis is broad and includes multiple rheumatological spectrum diagnoses including rheumatoid arthritis, lupus, other arthropathies. Renal dysfunction is also on the differential along with electrolyte abnormalities. After reviewing laboratory values, they are all normal with mild anemia and a potassium of 3.4. Renal function is normal. BNP is also normal. At this time I have advised patient needs to follow-up with a chart changer at her earliest convenience for a full battery of testing and rheumatological workup. Patient has health insurance and states that she will call them and schedule an in network provider. In the meantime I will place her on a short course of steroids to help with the inflammation and hopefully give symptomatic treatment in the interim. Ketorolac IV will also be given prior to discharge.. 04/19 11:39 Order name: Basic Metabolic Panel; Complete Time: 14:45 sp3 04/19 11:39 Order name: CBC with Diff; Complete Time: 14:45 sp3 04/19 11:39 Order name: Hepatic Function; Complete Time: 14:45 sp3 04/19 11:39 Order name: Magnesium; Complete Time: 14:45 sp3 04/19 11:39 Order name: BNP; Complete Time: 14:45 sp3 04/19 11:39 Order name: Albumin sp3 04/19 11:39 Order name: EKG; Complete Time: 11:40 sp3 04/19 11:39 Order name: EKG - Nurse/Tech; Complete Time: 13:49 sp3 04/19 11:39 Order name: IV Saline Lock; Complete Time: 13:36 sp3 04/19 11:39 Order name: Labs collected and sent; Complete Time: 13:36 sp3 04/19 11:39 Order name: NPO; Complete Time: 13:26 sp3 Administered Medications: 15:12 Drug: Ketorolac IVP 30 mg Route: IVP; Site: right forearm; bp 15:24 Follow up: Response: No adverse reaction bp 15:13 Drug: MethylPrednisoLONE IVP 60 mg Route: IVP; Site: right forearm; bp 15:24 Follow up: Response: No adverse reaction bp Disposition Summary: 04/19/23 14:56 Discharge Ordered Location: Home sp3 Condition: Stable sp3 Diagnosis - Diffuse arthropathy, arthritis sp3 Followup: sp3 - With: Private Physician - When: Upon discharge from the Emergency Department - Reason: Continuance of care Discharge Instructions: - Discharge Summary Sheet sp3 - Arthritis sp3 Forms: - Medication Reconciliation Form sp3 - Thank You Letter sp3 - Antibiotic Education sp3 - Prescription Opioid Use sp3 - Patient Portal Instructions sp3 Prescriptions: - Prednisone 20 mg Oral Tablet - take 3 tablets by ORAL route once daily for 5 days; 15 tablet; Refills: 0, sp3 Product Selection Permitted Signatures: Dispatcher [employer] Kalin Calvillo, RN RN Magalie George MD MD sp3
--- NOTE | 2023-04-19 14:56 | ER ---
Nurse's Notes [facility] Name: Kary Morales Age: 37 yrs Sex: Female : 1985 Arrival Date: 04/19/2023 Time: 10:47 Bed 10 Private MD: Diagnosis: Diffuse arthropathy, arthritis Presentation: 04/19 11:08 Chief complaint: Patient states: 3 DAYS BILATERAL HAND/FOOT SWELLING. Coronavirus bp screen: At this time, the client does not indicate any symptoms associated with coronavirus-19. Ebola Screen: No symptoms or risks identified at this time. Initial Sepsis Screen: Does the patient meet any 2 criteria? No. Patient's initial sepsis screen is negative. Does the patient have a suspected source of infection? No. Patient's initial sepsis screen is negative. Risk Assessment: Do you want to hurt yourself or someone else? Patient reports no desire to harm self or others. Note RECENT H/O ANEMIA, LOW NA AND LOW K. Onset of symptoms is unknown. 11:08 Method Of Arrival: Ambulatory bp 11:08 Acuity: ALMA DELIA 3 bp Historical: - Allergies: 11:09 Demerol; bp 11:09 Dilaudid; bp 11:09 Morphine; bp 11:09 Tape; bp - PMHx: 11:09 Hypertension; Seizures; bp - PSHx: 11:09 tubal ligation; r leg; bp - Immunization history:: Adult Immunizations up to date. - Social history:: Smoking status: unknown. Screenin:00 [facility] ED Fall Risk Assessment (Adult) History of falling in the last 3 months, nj1 including since admission Score/Fall Risk Level 0 - 2 = Low Risk Oriented to surroundings, Maintained a safe environment, Hourly rounding (assess needs \T\ fall precautionary measures) done. Abuse screen: Denies threats or abuse. Denies injuries from another. Nutritional screening: No deficits noted. Tuberculosis screening: No symptoms or risk factors identified. Assessment: 13:50 General: Appears in no apparent distress. uncomfortable, Behavior is calm, cooperative, nj1 appropriate for age. Pain: Complains of pain in right hand, left hand, right foot, left foot, right arm and anterior aspect of left shoulder Pain currently is 8 out of 10 on a pain scale. Neuro: Level of Consciousness is awake, alert, obeys commands, Oriented to person, place, time, situation. Cardiovascular: Patient's skin is warm and dry. Respiratory: Airway is patent Respiratory effort is even, unlabored. Derm:. Musculoskeletal: Swelling present in right hand. 14:54 Reassessment: Patient appears in no apparent distress at this time. Patient and/or nj1 family updated on plan of care and expected duration. Pain level reassessed. Patient is alert, oriented x 3, equal unlabored respirations, skin warm/dry/pink. Vital Signs: 11:08 BP 143 / 87; Pulse 84; Resp 16; Temp 98; Pulse Ox 98% ; bp 13:30 BP 125 / 85; Pulse 73; Resp 22; Pulse Ox 99% on R/A; Pain 8/10; nj1 14:54 BP 130 / 88; Pulse 75; Resp 21; Pulse Ox 99% on R/A; nj1 13:30 Pain Scale: Adult banner ED Course: 10:51 Patient arrived in ED. mg5 11:09 Triage completed. bp 11:09 Arm band placed on. bp 11:20 Magalie Hackett MD is Attending Physician. sp3 13:35 Inserted saline lock: 22 gauge in right wrist, using aseptic technique. mb9 13:36 Basic Metabolic Panel Sent. mb9 13:36 CBC with Diff Sent. mb9 13:36 Hepatic Function Sent. mb9 13:36 Magnesium Sent. mb9 13:36 Albumin Sent. mb9 13:36 BNP Sent. mb9 13:38 Fabi Ponce, RN is Primary Nurse. nj1 13:49 EKG done, by ED staff. aw1 14:02 Provided Education on: fall precautions, call light. nj1 14:02 Patient has correct armband on for positive identification. Bed in low position. Call ma1 light in reach. Side rails up X 1. 15:25 No provider procedures requiring assistance completed. IV discontinued, intact, bp bleeding controlled, No redness/swelling at site. Pressure dressing applied. Administered Medications: 15:12 Drug: Ketorolac IVP 30 mg Route: IVP; Site: right forearm; bp 15:24 Follow up: Response: No adverse reaction bp 15:13 Drug: MethylPrednisoLONE IVP 60 mg Route: IVP; Site: right forearm; bp 15:24 Follow up: Response: No adverse reaction bp Outcome: 14:56 Discharge ordered by . sp3 15:25 Discharged to home ambulatory. bp 15:25 Condition: stable 15:25 Discharge instructions given to patient, Instructed on discharge instructions, follow up and referral plans. medication usage, Demonstrated understanding of instructions, follow-up care, medications, Prescriptions given X 1. 15:43 Patient left the ED. mb9 Signatures: Kalin Vora, RN RN bp Magalie Hackett MD MD sp3 Karime Mccarthy RN RN mb9 Fabi Ponce RN RN nj1 Frida Gay [facility] Lisa Carvalho mg5
[2023-04-19] MEDS ORDERED: METHYLPREDNISOLONE 125 MG INJ ONE (15:18)
[2023-04-19] MEDS ORDERED: KETOROLAC 30 MG/ML INJ ONE (15:18)
[2023-04-19 16:07] VITALS: TEMP 98
[2023-04-19 16:11] VITALS: O2SAT 99
[2023-04-19 16:12] VITALS: BP 130/88
--- NOTE | 2023-04-22 15:35 | EKG ---
Test Date: 2023-04-19 Test Time: 13:44:40 Laboratory Immunologist: SOFIA MEASUREMENT RESULTS: Intervals: Rate: 54 WI: 138 QRSD: 88 QT: 444 QTc: 421 Timber: P: 70 WI: 138 QRS: 71 T: 56 INTERPRETIVE STATEMENTS: Sinus bradycardia with sinus arrhythmia Otherwise normal ECG No previous ECG available for comparison Electronically Signed On 04-22-23 15:32:00 CDT by Caleb Tang
== END 2023-04-19 15:43 | disposition home or self-care (01) ==
LOC: ER 10:47
DX: M12.9 Arthropathy, unspecified (principal); I10 Essential (primary) hypertension; Z88.5 Allergy status to narcotic agent; Z88.8 Allergy status to other drugs, medicaments and biological substances; Z91.048 Other nonmedicinal substance allergy status
CPT/HCPCS: 93005; 85025; 80048; 36415; 83735; 80076; 83880; 96375; 96374; 99284; J2930

== ENCOUNTER 2025-01-08 17:55 | Emergency (ER) | payer OTHER ==
[2025-01-08] MEDS ORDERED: GABAPENTIN 300 MG CAP ONE (21:03)
[2025-01-08] MEDS ORDERED: ACYCLOVIR 400 MG TABLET ONE (21:04)
[2025-01-08] MEDS ORDERED: HYDROCODONE/APAP 7.5/325 MG TAB ONE (21:04)
--- NOTE | 2025-01-08 21:30 | ER ---
Nurse's Notes [facility] Name: Kary Morales Age: 39 yrs Sex: Female : 1985 Arrival Date: 01/08/2025 Time: 17:55 Bed IW1 Private MD: Diagnosis: Presentation: 01/08 19:12 Chief complaint: Patient states: spider bite on the back of my neck and chest for the ha1 past four days. Coronavirus screen: Client denies travel out of the [place] in the last 14 days. Ebola Screen: No symptoms or risks identified at this time. Initial Sepsis Screen: Does the patient meet any 2 criteria? No. Patient's initial sepsis screen is negative. Does the patient have a suspected source of infection? No. Patient's initial sepsis screen is negative. Risk Assessment: Do you want to hurt yourself or someone else? Patient reports no desire to harm self or others. Onset of symptoms was January 08, 2025. 19:12 Method Of Arrival: Ambulatory ha1 19:12 Acuity: ALMA DELIA 4 ha1 21:07 Note pt not in lobby. kl 21:29 Note pt not in lobby. kl Triage Assessment: 19:16 General: Appears uncomfortable, Behavior is calm, cooperative. Pain: Complains of pain ha1 in back of neck and chest Pain currently is 7 out of 10 on a pain scale. Quality of pain is described as burning. Neuro: Level of Consciousness is awake, alert, obeys commands, Oriented to person, place, time, situation. Cardiovascular: Capillary refill < 3 seconds. Respiratory: Airway is patent Respiratory effort is even, unlabored, Respiratory pattern is regular, symmetrical. Derm: Rash noted that is itchy, papular, red, raised, on back of neck and chest. Historical: - Allergies: 19:14 Demerol; ha1 19:14 Dilaudid; ha1 19:14 Morphine; ha1 19:14 Tape; ha1 - PMHx: 19:14 Hypertension; Seizures; MRSA 2006 (2006); ha1 - PSHx: 19:14 tubal ligation; r leg; ha1 - Immunization history:: Adult Immunizations up to date. - Infectious Disease History:: Denies. - Social history:: Smoking status: Patient reports the use of cigarette tobacco products, smokes one-half pack cigarettes per day. Screenin:15 [facility] ED Fall Risk Assessment (Adult) History of falling in the last 3 months, ha1 including since admission No falls in past 3 months (0 pts) Confusion or Disorientation No (0 pts) Intoxicated or Sedated No (0 pts) Impaired Gait No (0 pts) Mobility Assist Device Used No (0 pt) Altered Elimination No (0 pt) Score/Fall Risk Level 0 - 2 = Low Risk Oriented to surroundings, Maintained a safe environment, Educated pt \T\ family on fall prevention, incl call for assistance when getting out of bed, Hourly rounding (assess needs \T\ fall precautionary measures) done. Abuse screen: Denies threats or abuse. Denies injuries from another. Nutritional screening: No deficits noted. Tuberculosis screening: No symptoms or risk factors identified. Vital Signs: 19:12 BP 147 / 92; Pulse 86; Resp 17 S; Temp 98.9; Pulse Ox 100% on R/A; Weight 63.5 kg; ha1 Height 5 ft. 2 in. ; 19:12 Body Mass Index 25.61 (63.50 kg, 157.48 cm) ha1 ED Course: 17:57 Patient arrived in ED. im 18:53 Junior Hu PA is PHCP. cp 18:53 Junior Salmon MD is Attending Physician. cp 19:14 Triage completed. ha1 20:55 Patient's name was called from ER lobby. No response. ha1 Administered Medications: No medications were administered Outcome: 21:30 Patient left the ED. kl Signatures: Nancy El RN RN kl Page, Corey, PA PA cp Ginny Bates RN RN ha1 Fariha Euceda im
[2025-01-08 21:50] VITALS: BP 147/92; TEMP 98.9; O2SAT 100
--- NOTE | 2025-01-09 21:31 | EDPHYS ---
Physician Documentation [facility] Name: Kary Morales Age: 39 yrs Sex: Female : 1985 Arrival Date: 01/08/2025 Time: 17:55 Bed IW1 Private MD: ED Physician Junior Salmon HPI: 01/08 20:25 This 39 yrs old Female presents to ER via Ambulatory with complaints of Insect Bite. cp 20:25 The patient's rash thought to be caused by possible spider bite. cp 20:25 The rash is located on the left posterior lower neck and left chest. The rash can be cp described as burning, painful. Onset: The symptoms/episode began/occurred 3-4 days ago. Associated signs and symptoms: Pertinent positives: burning sensation, Pain Pertinent negatives: difficulty breathing, fever, wheezing. Treatment given at home: nail greek placed on rash on chest. Historical: - Allergies: 19:14 Demerol; ha1 19:14 Dilaudid; ha1 19:14 Morphine; ha1 19:14 Tape; ha1 - PMHx: 19:14 Hypertension; Seizures; MRSA 2006 (2006); ha1 - PSHx: 19:14 tubal ligation; r leg; ha1 - Immunization history:: Adult Immunizations up to date. - Infectious Disease History:: Denies. - Social history:: Smoking status: Patient reports the use of cigarette tobacco products, smokes one-half pack cigarettes per day. ROS: 20:30 Constitutional: Negative for body aches, chills, fever, poor PO intake, cp 20:30 Eyes: Negative for injury, pain, redness, and discharge, cp 20:30 Cardiovascular: Negative for edema, palpitations, 20:30 Respiratory: Negative for cough, shortness of breath, wheezing, 20:30 Abdomen/GI: Negative for abdominal pain, vomiting, diarrhea, constipation, 20:30 Skin: Positive for rash, 20:30 Neuro: Negative for altered mental status, dizziness, headache, weakness, 20:30 All other systems are negative, Exam: 20:33 Constitutional: The patient appears in no acute distress, alert, awake, non-toxic, well cp developed, well nourished, uncomfortable, 20:33 Head/Face: Normocephalic, atraumatic. cp 20:33 Cardiovascular: Rate: normal, 20:33 Respiratory: the patient does not display signs of respiratory distress, Respirations: normal, no use of accessory muscles, no retractions, labored breathing, is not present, Breath sounds: are clear throughout, no decreased breath sounds, no stridor, no wheezing, 20:33 Abdomen/GI: Inspection: abdomen appears normal, 20:33 Skin: cellulitis, is not appreciated, rash a mild rash is noted, rash can be described as erythematous, vesicular, grouped with 3 visible areas extending in the left C5 dermatome distribution, Vital Signs: 19:12 BP 147 / 92; Pulse 86; Resp 17 S; Temp 98.9; Pulse Ox 100% on R/A; Weight 63.5 kg; ha1 Height 5 ft. 2 in. ; 19:12 Body Mass Index 25.61 (63.50 kg, 157.48 cm) ha1 MDM: 19:13 Medical Screening Exam initiated xiang Administered Medications: No medications were administered Disposition Summary: 01/08/25 21:30 Eloped Notes: Disposition: after being seen by provider argelia Reason: (see nurse's notes) argelia Addendum: 01/11/2025 22:46 Co-signature as Attending Physician, Junior Salmon MD I agree with the assessment and c sanchez plan of care. Signatures: Nancy El, Junior Candelaria RN, MD MD cha Page, Corey, PA PA cp Ayala, Heidy, RENATO RN 1
== END 2025-01-08 21:30 | disposition left against medical advice (07) ==
LOC: ER 17:55
DX: R21 Rash and other nonspecific skin eruption (principal)
CPT/HCPCS: 99281